=== PATIENT | female | born 1960 | race Caucasian/White ===

== ENCOUNTER 2019-10-04 01:29 | Inpatient (IN) | payer MEDICAID, SELFPAY ==
[2019-10-04] VITALS (66 sets, daily range): BP systolic 73–175; BP diastolic 42–96
[~2019-10-04] VITALS: Ht 160 cm; Wt 85.7 kg
[~2019-10-04 01:29] MED LIST: BACL10TA4 PO; LISI10TA11 PO; [UNRECOGNIZED DRUG - CODE] PO
[2019-10-04] MEDS ORDERED: INTUBATION KIT MC ONE (01:44)
[2019-10-04] MEDS ORDERED: PROPOFOL 1000 MG/100 ML PREMIX 100 ML IV ONE ×2 (01:45→09:11)
[2019-10-04] MEDS ORDERED: fentaNYL 0.05 MG/ML VIAL IVP ONE ×3 (01:45→03:45)
[2019-10-04] MEDS ORDERED: LORazepam 2 MG/ML VIAL IVP ONE (01:45)
[2019-10-04] MEDS ORDERED: ETOMIDATE 20 MG/10 ML VIAL IVP ONE (01:45)
[2019-10-04] MEDS ORDERED: SUCCINYLCHOLINE CHLORIDE 200 MG/10 ML VIAL IVP ONE (01:45)
--- NOTE | 2019-10-04 02:00 | NUR ---
ARRIVAL TO BED 01 VIA W/C. COVID PRECAUTIONS IN PLACE.
--- NOTE | 2019-10-04 02:05 | NUR ---
58 Y/O F PRESENTS TO ED C/O INCREASED SOB. O2 SAT AT 87% RA. LUNG SOUNDS CRACKLES ALTHROUGHOUT. RESPIRATIONS; TACHYPNIC, DEEP. CAP REFIIL <3 SECONDS. PT DENIES ANY TRAVEL, BEING IN CONTACT WITH POSITIVE COVID. PMH: DENIES NKA
--- NOTE | 2019-10-04 02:05 | NUR ---
DR. COLEY AT BEDSIDE, DISCUSSED INTUBATION WITH PT. PT TO BE INTUBATED BY DR. COLEY.
[2019-10-04 02:06] LABS: BASOPHILS # (AUTO) 0.1 K/uL (0.00-0.22); BASOPHILS % (AUTO) 0.6 % (0.0-2.0); HEMATOCRIT 42.5 % (36-48); HEMOGLOBIN 13.9 g/dL (12.0-16.0); LYMPHOCYTES # (AUTO) 1.8 K/uL (2.5-16.5); LYMPHOCYTES % (AUTO) 11.2 % (20.5-51.1); MEAN CORPUSCULAR HEMOGLOBIN 27 pg (27-31); MEAN CORPUSCULAR HGB CONC 33 g/dL (33-37); MEAN CORPUSCULAR VOLUME 82.5 fL (80-94); MONOCYTES # (AUTO) 0.7 K/uL (0.8-1.0); MONOCYTES % (AUTO) 4.2 % (1.7-9.3); NEUTROPHILS # (AUTO) 13.6 K/uL (1.8-7.7); PLATELET COUNT (AUTO) 305 K/uL (140-450); RED BLOOD CELL COUNT(AUTO) 5.15 MIL/uL (4.20-5.40); RED CELL DISTRIBUTION WIDTH 13.2 % (11.6-13.7); WHITE BLOOD COUNT (AUTO) 16.2 K/uL (4.8-10.8)
--- NOTE | 2019-10-04 02:11 | NUR ---
PT INTUBATED BY DR. COLEY WITH A 7.5 ET TUBE, 21.5 CM AT THE LIP.
[2019-10-04 02:22] LABS: ALBUMIN 2.8 g/dL (3.4-5.0); ANION GAP 18.9 (8-16); CARBON DIOXIDE 22.3 mmol/L (21-32); POTASSIUM 3.2 mmol/L (3.5-5.1); TOTAL BILIRUBIN 0.6 mg/dL (0.0-1.0)
[2019-10-04 02:24] LABS: LACTATE DEHYDROGENASE 685 U/L (81-234)
[2019-10-04 02:28] LABS: PROTHROMBIN TIME 10.2 secs (10.8-13.4)
--- NOTE | 2019-10-04 02:40 | NUR ---
# FR Jennings catheter with 10 ml utilizing sterile technique. Immediate return of 2 ml OF urine noted. Bedside drainage bag placed below level of bladder. Urine sample collected and sent to lab. Pt tolerated procedure.
[2019-10-04 02:44] LABS: C-REACTIVE PROTEIN QUANT 27.6 mg/dL (0.0-0.9)
--- NOTE | 2019-10-04 02:55 | NUR ---
CONTACT INFO: PAYAM (SON) [phone] JEFRY (): [phone]
[2019-10-04 03:20] LABS: RSV NEGATIVE (NEGATIVE)
[2019-10-04] MEDS ORDERED: AZITHROMYCIN 500 MG in DEXTROSE 5% 250 ML IV ONE (03:20)
[2019-10-04] MEDS ORDERED: ASPIRIN 600 MG SUPP RC ONE (03:20)
--- NOTE | 2019-10-04 03:20 | NUR ---
PERSISTENT HYPOTENSION NOTED, DR. COLEY AWARE. ORDERED FOR LEVOPHED GTT TO BE ADMINISTERED AT THIS TIME.
[2019-10-04] MEDS ORDERED: DEXT 5% /NACL 0.9% 1,000 ML IV SCH (03:22)
[2019-10-04] MEDS ORDERED: ONDANSETRON 4 MG/2 ML VIAL IM/IVP PRN (03:25)
[2019-10-04] MEDS ORDERED: ACETAMINOPHEN 325 MG TAB PO PRN (03:25)
[2019-10-04] MEDS ORDERED: DOCUSATE SODIUM 100 MG GELCAP PO PRN (03:25)
[2019-10-04] MEDS ORDERED: MORPHINE SULFATE 2 MG/ML SYR IVP PRN (03:25)
[2019-10-04] MEDS ORDERED: HYDROcodone/APAP 5/325 MG 1 TAB TAB PO PRN (03:25)
--- NOTE | 2019-10-04 03:25 | NUR ---
SEE IV FLOWSHEET FOR VITAL SIGNS FOR LEVOPHED TITRATION.
[2019-10-04] MEDS ORDERED: ALBUTEROL HFA MDI 90 MCG/ACTUATION 8 GM INH PRN (03:30)
[2019-10-04] MEDS ORDERED: NOREPINEPHRINE 4 MG in DEXTROSE 5% 250 ML IV ONE (03:35)
[2019-10-04] MEDS ORDERED: NOREPINEPHRINE 4 MG/4 ML VIAL IV ONE (03:37)
[2019-10-04] MEDS ORDERED: DEXTROSE 50% 50 ML SYR IVP PRN (03:40)
[2019-10-04] MEDS ORDERED: MIDAZOLAM MDV 50 MG in NACL 0.9% 40 ML IV PRN (03:40)
[2019-10-04] MEDS ORDERED: AZITHROMYCIN 500 MG INJ VIAL IV ONE (03:44)
[2019-10-04] MEDS ORDERED: KCL 20 MEQ/WATER INJ PREMIX 200 ML IV ONE (03:45)
[2019-10-04 03:57] LABS: MAGNESIUM 1.8 mg/dL (1.8-2.4)
[2019-10-04] MEDS ORDERED: cefTRIAXone 1,000 MG VIAL ONE (04:06)
--- NOTE | 2019-10-04 04:11 | NUR ---
TRANSPORT MONITOR APPLIED TO PT. PT TO BE TRANSPORTED TO ICU AT THIS TIME.
[2019-10-04 04:24] LABS: THYROID STIMULATING HORMONE 0.58 uIU/mL (0.34-3.74)
--- NOTE | 2019-10-04 04:35 | NUR ---
ADMITTED THIS 58 YEAR OLD FEMALE PATIENT FROM ER PER [facility], WITH THE ADMITTING DIAGNOSIS OF PNEUMONIA, RESP. FAILURE AND R/O COVID 19; ORALLY INTUBATED AND VENTILATED AT 100 % FIO2. CARDIACSCOPE SHOWS ON SINUS TACHY HR 108/MIN NO ARRHYTHMIAS SEEN. COMMENCING ON IV LEVOPHED AT 6 MCG/MIN, PROPOFOL DRIP AT 25 MCG/KG/MIN VIA PERIPHERAL LINE OF RIGHT HAND RASS - 2 , DRY WEIGHT IS 78 KG; INTACT. ABDOMEN SOFT, NON TENDER, HYPOACTIVE BOWEL SOUND; OGT IN SITU, NPO EXCEPT MEDS.WITH JASSO CATH IN PLACE TO GRAVITY DRAINAGE BAG, PATENT AND INTAQCT.
[2019-10-04] MEDS ORDERED: HEPARIN PER PHARMACY MC PRN (04:45)
--- NOTE | 2019-10-04 05:00 | NUR ---
Patient will be admitted to care of DR. RANGEL. Admited to ICU. Will go to room 7. Belongings list completed. Report to ICU RETAIL SOLAR ADVISOR.
--- NOTE | 2019-10-04 05:30 | NUR ---
CONSENT FOR CENTRAL LINE INSERTION TAKEN BY TELEPHONE FROM PATIENT'S AND SON. CENTRAL LINE INSERTED BY DR. STINSON ON RIGHT INTERNAL JUGULAR; PORTABLE CHEST X-RAY DONE BY TECH TO CONFIRM PLACEMENT.
[2019-10-04] MEDS: PIPERACILLIN/TAZOBACTAM 3.375 GM in DEXTROSE 5% 50 ML IV SCH ×3 (06:00→17:46)
--- NOTE | 2019-10-04 06:30 | NUR ---
LEVOPHED DRIP TITRATED UP ORDERED.
--- NOTE | 2019-10-04 06:49 | NUR ---
CALLED TO ER FOR INTUBATION. PATIENT WAS INTUBATED SUCCESSFULLY BY DR. COLEY WITH ETT 7.5 AND SECURED AT 25 WITH ANCHOR-FAST. AUSCULTATION REVEALS DECREASED BREATH SOUNDS ON THE LEFT SIDE. XRAY AT BEDSIDE SHOWS RIGHT MAINSTEM INTUBATION. PER DR. COLEY AT BEDSIDE ETT WAS PULLED BACK TO 21.5 AND SECURED WITH ANCHOR-FAST. BILATERAL BREATH SOUNDS ON AUSCULTATION. PATIENT WAS PLACED ON VENT SETTINGS: AC/VC 20, 350, +15, 100%. VENT PLUGGED IN RED OUTLET, ALARMS SET AND AUDIBLE, HOB > 30 DEGREES, AND BVM AT BEDSIDE. WILL CONTINUE TO MONITOR PATIENT.
[2019-10-04] MEDS: BLOOD GLUCOSE MONITORING 1 DEV DEV FS SCH ×4 (07:30→20:57)
--- NOTE | 2019-10-04 07:30 | NUR ---
RECEIVED PT FROM CHARGE NURSE YOLY. PT SEDATED ON PROPOFOL 25 MCG/KG/MIN ( 12 MLS/HR) BASED ON DRY WEIGHT 78 KG. RASS -2. ETT TO VENT. BEDSIDE MONITOR SHOWS SR 97S. PT ALSO HAS LEVOPHED DRIP AT 10 MCG/MIN. PT HAS IV TO LEFT HAND RIGHT HAND AND RIGHT FOOT # 22. PER CHARGE NURSE, CENTRAL LINE INSERTION DONE, WAIT FOR X-RAY TO SEE OK TO USE. ABD SOFT, NON TENDER. F/C IN PLACE WITH YELLOW URINE NOTED. WILL CONTINUE TO MONITOR.
--- NOTE | 2019-10-04 08:10 | NUR ---
PT SELF EXTUBATED, GAVE PT OXYGEN AND ASKED CHARGE NURSE TO CALL RT AND RESIDENT IMMEDIATELY.
--- NOTE | 2019-10-04 08:10 | NUR ---
[employer] CHANNEL OPENER CALLED TO BEDSIDE PATIENT PRESENTING WITH SELF EXTUBATION LOC AWAKE PLACED PATIENT ON SUPPLEMENTAL OXYGEN AT 15 LPM VIA NON REBREATHER OROPHARYNGEAL SUCTION FOR LARGE THICK SEMI CLEAR TO BLOOD TINGE SECRETIONS RN, DR. PARAMJIT SHRESTHA NOTIFIED VENTILATOR PLACED ON STANDBY
--- NOTE | 2019-10-04 08:43 | NUR ---
DR. GANT AND DR PARAMJIT SHRESTHA AT BEDSIDE MD USING [facility] PATIENT SUCCESSFULLY INTUBATED WITH AN ENDOTRACHEAL TUBE #7.5 AT 24cm STAT CXR TO BE ORDERED FOR TUBE PLACEMENT
--- NOTE | 2019-10-04 08:44 | NUR ---
PATIENT HAS BEEN SCREENED AND CATEGORIZED HIGH NUTRITION RISK. PATIENT WILL BE SEEN WITHIN 1-2 DAYS OF ADMISSION. 10/04/19-10/05/[address]
--- NOTE | 2019-10-04 08:45 | NUR ---
DR. SHRESTHA GAVE VERBAL ORDER TO PUT PT ON RESTRAIN.
--- NOTE | 2019-10-04 08:55 | NUR ---
NOTIFIED DR. PARAMJIT SHRESTHA OF I/E WHEEZE BREATH SOUNDS POST INTUBATION ME TO ORDER SOLU-MEDROL
[2019-10-04] MEDS ORDERED: ENOXAPARIN 40 MG/0.4 ML SYR SUBQ SCH (09:00)
[2019-10-04] MEDS ORDERED: HYDROCORTISONE NA SUCC 100 MG/2 ML VIAL IV SCH (09:00)
[2019-10-04] MEDS ORDERED: AZITHROMYCIN 500 MG in DEXTROSE 5% 250 ML IV SCH (09:00)
[2019-10-04] MEDS ORDERED: HYDROXYCHLOROQUINE 200 MG TAB PO SCH (09:00)
--- NOTE | 2019-10-04 09:08 | NUR ---
DR. LARRY IN TO CHECK PT. NOTIFIED PT ON PROPOFOL 25 MCG/KG/MIN, PER DR. LARRY, INCREASE TO 30 MCG/KG/MIN. CHARGE NURSE ELAM MADE AWARE.
--- NOTE | 2019-10-04 09:18 | NUR ---
DISCHARGE PLANNING: THIS IS A 58 Y/O FEMALE PATIENT FROM HOME, WHO CAME IN DUE TO WORSENING SOB AND COUGHS X 1 WEEK. PAST MEDICAL HISTORY INCLUDE HTN. INITIAL DIAGNOSIS OF PNEUMONIA R/O COVID AND RESPIRATORY FAILURE. CURRENT LABS INCLUDE WBC 16.2, H/H 13.9/42.5, NA/K 132/3.2, BUN/CREA 8/1.0, LACTIC ACID 7.4. COVID TEST PENDING. MRSA NARES AND BLOOD CULTURES PENDING. CXR SHOWED OPACIFICATION OF THE LEFT HEMITHORAX. ON PLAQUENIL, SOLU CORTEF, AZITHROMYCIN, ZOSYN. ORALLY INTUBATED TO VENT, FIO2 100%, O2 SAT 98%. CARDIO, ID AND PULMO CONSULTS IN PLACE. DC PLAN PENDING ON PATIENT'S RESPONSE TO TREATMENT. Addendum: 10/06/19 at 0930 by Annamaria Vila STILL IN ICU, ORALLY INTUBATED TO VENT, FIO2 70%, O2 SAT 95%. SEDATED WITH VERSED AND FENTANYL. ON HEPARIN, VECURONIUM AND LEVOPHED DRIPS. CURRENT LABS INCLUDE WBC 21.2, H/H 11.5/35.8, NA/K 134/5.2, BUN/CREA 17/1.1 AND TROP 1.452. (+) FOR COVID 19. ON PLAQEUNIL, AZITHROMYCIN, ROCEPHIN AND PROTONIX IV. SPUTUM CS SHOWED FEW GRAM POSITIVE COCCI. BLOOD CS NO GROWTH AFTER 48 HOURS. SEEN BY CARDIO, PULMO AND ID CONSULTS. DC PLAN PENDING ON PATIENT'S RESPONSE TO TREATMENT. Addendum: 10/08/19 at 1036 by Annamaria Vila STILL IN ICU. ORALLY INTUBATED TO VENT, FIO2 50%, O2 SAT 96%. SEDATED WITH VERSED AND FENTANYL. ON LEVOPHED AND HEPARIN DRIPS. ON LASIX, AZITHROMYCIN AND PROTONIX. SPUTUM CS SHOWED FEW GRAM POSITIVE COCCI. BLOOD CS NO GROWTH AFTER 48 HOURS. URINE CS NO GROWTH. SEEN BY ID, PULMO AND CARDIO CONSULTS. DC PLAN PENDING ON PATIENT'S RESPONSE TO TREATMENT. Addendum: 10/09/19 at 1554 by Annamaria Vila STILL IN ICU. ORALLY INTUBATED FIO2 40%-SAT 96%. CURRENT LABS INCLUDE WBC 12.1, H/H 10.6/31.5, NA/K 137/3.5, BUN/CREA 37/1.0. NOT ON PRESSORS ANYMORE. SEDATED WITH MORPHINE AND VERSED DRIPS. SEEN BY PULMO, ID, CARDIO CONSULTS. DC PLAN PENDING ON PATIENT'S RESPONSE TO TREATMENT. Addendum: 10/10/19 at 1146 by Annamaria Vila STILL IN ICU, ORALLY INTUBATED ON MECHANICAL VENTILATION. SEDATED WITH MORPHINE AND VERSED. NOT ON PRESSORS. SEEN BY PULMO - CONTINUE WITH MECHANICAL VENTILATION AND START WEANING. SEEN BY ID - CONTINUE CURRENT MANAGEMENT FOR NOW. DC PLAN PENDING ON PATIENT'S RESPONSE TO TREATMENT. Addendum: 10/11/19 at 1200 by Annamaria Vila PATIENT DID NOT TOLERATE CPAP TRIAL DUE TO TACHYPNEA AND DESATURATION AND WAS PLACED BACK TO AC MODE. ID, CARDIO AND PULMO CONSULTS IN PLACE. DC PLAN PENDING ON PATIENT'S RESPONSE TO TREATMENT. Addendum: 10/17/19 at 1027 by Annamaria Vila PATIENT TOLERATED CPAP TRIAL FOR AN HOUR YESTERDAY. ETT TO VENT, FIO2 40%, O2 SAT 96%. SEDATED WITH MORPHINE AND VERSED. CURRENT CXR SHOWED INCREASED PATCHY AIRSPACE INFILTRATE AND SUSPECTED TRACE LEFT PLEURAL EFFUSION. CURRENT LABS INCLUDE WBC 16.3, H/H 10.6/32.4, NA/K 137/4.5, BUN/CREA 34/0.6 AND MAG 1.7. CARDIO, PULMO AND ID CONSULTS IN PLACE. DC PLAN PENDING ON PATIENT'S RESPONSE TO TREATMENT.
--- NOTE | 2019-10-04 09:48 | NUR ---
NO CURRENT IMPRESSION ON CXR TAKEN AT 0846 WILL HAVE ERMD READ
--- NOTE | 2019-10-04 09:48 | NUR ---
CXR TAKEN AT [address] RYDER MCCALLUM ERMD IMPRESSION RIGHT MAIN STEM INTUBATION PULL ENDOTRACHEAL TUBE 3cm
[2019-10-04] MEDS ORDERED: PROPOFOL 1000 MG/100 ML PREMIX 100 ML IV PRN (10:10)
[2019-10-04] MEDS ORDERED: methylPREDNISolone SS 40 MG/ML VIAL IVP SCH (10:15)
--- NOTE | 2019-10-04 10:42 | NUR ---
PT RESTING IN BED. O2 SATS 98 %. SBP MORE THAN 90S. NO DISCOMFORT NOTED AT THIS TIME.
[2019-10-04] MEDS: hePARIN / DEXT 5% PREMIX 250 ML IV SCH (10:49)
--- NOTE | 2019-10-04 11:07 | NUR ---
Construction Accountant Note: Basic Screen: Yes High Risk DC Screen [place]: JEFRY HOLLEY [place] Relationship: Pre-Admission Living Arrangements: Lives with Other Prior ADL Independent Current Home Health Name/Tel: N/A Current DME/02 Name/Tel: N/A Current Hospice Name/Tel: N/A Current Dialysis Name/Tel: N/A Healthcare Decision Maker: Patient Advance Directive No Physician Orders for Life Sustaining Treatment Form No Patient/Family Have Educational Needs No Discipline: Case Mgt/Social Svcs Tentative Discharge Plan/Destination: No Needs Identified Will require assistance post discharge: No Referred to Cylinder Filler: No Tentative Discharge Plan Summary: Patient is a 58-year-old female admitted for pneumonia and COVID rule out. Patient has PMHX of pneumonia and rule out COVID. Patient has PMHX of HTN and was admitted from home where he lives with her and children. SW contacted Jefry Holley [phone] to verify demographics. Jefry is Nauruan speaking and allowed daughter Lidia Holley on his behalf. Per Lidia, patient is independent with all ADLs and has no mental health or substance abuse history. Lidia reported that all patients needs are being met. Tentative discharge plan is for patient to return home. No further needs identified. Signature: JOSE Hernandez Date: Oct 04, 2019 Time: 11:06
[2019-10-04] MEDS: fentaNYL 1 MG in NACL 0.9% 80 ML IV PRN ×2 (12:34→15:48)
[2019-10-04] MEDS: NOREPINEPHRINE 16 MG in DEXTROSE 5% 250 ML IV PRN (12:38)
[2019-10-04] MEDS ORDERED: ASCORBIC ACID 500 MG/5 ML ORASYR ONE (12:56)
[2019-10-04] MEDS: ZINC SULF 220 MG CAP NG SCH (12:59)
[2019-10-04] MEDS ORDERED: methylPREDNISolone SS 125 MG/2 ML VIAL ONE (13:03)
[2019-10-04] MEDS: ASCORBIC ACID 500 MG TAB NG SCH (13:08)
--- NOTE | 2019-10-04 13:58 | NUR ---
CALLED RESIDENTS [phone] REVIEWED ABG SAMPLE REPORT WITH DR. SHRESTHA AND DR. GODOY NO NEW ORDERS
--- NOTE | 2019-10-04 14:37 | NUR ---
PT IS AWAKE, REORIENTED PT'S ENVIRONMENT. PT USE HER MOUTH WORD TOLD US SHE HAS NAUSEA, ZOFRAN GIVEN ORDERED.
[2019-10-04] MEDS: MIDAZOLAM MDV 100 MG in NACL 0.9% 80 ML IV PRN (14:59)
--- NOTE | 2019-10-04 16:04 | NUR ---
PT RESTING COMFORTABLY IN BED. NO S/S OF RESPIRATORY DISTRESS NOTED. BEDSIDE MONITOR SHOWS SR 96 AND O2 SATS 96%.
--- NOTE | 2019-10-04 16:10 | NUR ---
RECEIVED PTT 58.9, PER PROTOCOL, NO RATE CHANGE NEEDED. WILL CONTINUE AT 1100 UNITS PER HOUR=11 MLS PER HOUR.
--- NOTE | 2019-10-04 18:20 | NUR ---
DR. STINSON PT O2 SATS DECREASED TO 86-88%, TRIED TO SUCTION PT, UNABLE TO GET ANYTHING. PT O2 SATS WAS FINE BEFORE HE CAME.
[2019-10-04 18:35] LABS: APPEARANCE,URINE CLEAR (CLEAR); BILIRUBIN,URINE NEGATIVE (NEGATIVE); BLOOD, URINE 1+ (NEGATIVE); COLOR,URINE YELLOW (YELLOW); LEUKOCYTE ESTERASE ,URINE NEGATIVE (NEGATIVE); NITRITE, URINE NEGATIVE (NEGATIVE); UGLUCOSE NEGATIVE (NEGATIVE)
[2019-10-04 19:05] LABS: BARBITURATE, URINE NEGATIVE ng/ml (NEG <=200)
[2019-10-04 19:06] LABS: BENZODIAZEPINE, URINE POSITIVE ng/mL (NEG <=200); CANNABINOID, URINE NEGATIVE ng/mL (NEG <=50); COCAINE, URINE NEGATIVE ng/mL (NEG <=300); OPIATE, URINE NEGATIVE ng/mL (NEG <=2000); PHENCYCLIDINE SCREEN,URINE NEGATIVE ng/mL (NEG <=25)
--- NOTE | 2019-10-04 19:15 | NUR ---
ENDORSED PT TO PM SHIFT TANA TSAI.
--- NOTE | 2019-10-04 19:20 | NUR ---
RECEIVED REPORT FROM DAYSHIFT NURSE. ETT TO VENT ACVC 20, FI02 85% TV 350 PEEP 15. SATURATIONS 83%, BREATHING IS UNLABORED, LUNG SOUNDS CLEAR AT UPPER LOBES EXPIRATORY ONLY, DIMINISHED ON INSPIRATION AND AT BASES. S1S2, HEART RATE 101 ON MONITOR. OGT IN PLACE, CLAMPED. AIR CHECK CONFIRMED. RIJ IN PLACE, D5 NS @ 20ML/HR, HEPARIN DRIP 1100 UNITS/HR. LEVOPHED- 20 MCG/MIN, FENTANYL 120 MCG/HR, AND VERSED-6MG/HR, RASS -3, WITHDRAWS TO PAIN, DRY WEIGHT 78 KG. PERRL 3MM. SKIN WARM AND DRY, AFEBRILE. LEFT HAND22 G, FLUSHED AND PATENT, SALINE LOCKED. RIGHT FOOT 22G, NOT PATENT-D/C'd. ABDOMEN SOFT AND NONTENDER, ABSENT BOWEL SOUNDS. JASSO IN PLACE WITH CLEAR YELLOW URINE NOTED. BILATERAL SOFT WRIST RESTRAINTS IN PLACE. SKIN INTACT, CIRCULATION WITHIN NORMAL RANGE. ROPLET PRECAUTIONS IN PLACE FOR RULE OUT COVID. TURNED AND REPOSITIONED PATIENT WITH DAYSHIFT NURSE. HOB 30 DEGREES, BED LOCKED AND IN LOWEST POSITION, SIDERAILS UP x3, WILL CONTINUE TO MONITOR.
[2019-10-04 19:23] LABS: FINE GRANULAR CASTS,URINE 0-10 /LPF (None Seen); HYALINE CASTS, URINE 0-10 /LPF (None Seen)
--- NOTE | 2019-10-04 20:20 | NUR ---
GAVE PATIENTS SON UPDATE ON STATUS.
--- NOTE | 2019-10-04 21:30 | NUR ---
RECEIVED PT ON DOCUMENTED SETTING.ETT WAS AT 7.5 @22. ETT WAS PULLED BACK 1 CM. XRAY WAS SHOT. VENT PLUGGED INTO RED OUTLET. BMV AT BEDSIDE. ETT SECURED AND INTACT. WILL CONT TO MONITOR
--- NOTE | 2019-10-04 23:04 | NUR ---
PER DR STINSON. ETT PULLED BACK TWO CM. ETT NOW 7.5 @ 19 AT THE [facility]. WILL REVIEW NEW XRAYS WHEN ITS DONE
[2019-10-05] VITALS (104 sets, daily range): BP systolic 97–159; BP diastolic 46–79
--- NOTE | 2019-10-05 00:33 | NUR ---
VAP ORAL CARE PROVIDED. REMOVED RESTRAINTS, SKIN INTACT, NO SIGNS OF INJURIES. TURNED AND REPOSITIONED, SKIN INTACT, AFEBRILE. RESTRAINTS BACK IN PLACE. SAFETY MEASURES IN PLACE. WILL CONTINUE TO MONITOR.
--- NOTE | 2019-10-05 00:51 | NUR ---
PTT 69.4, NO CHANGES PER PROTOCOL IN HEPARIN DRIP
--- NOTE | 2019-10-05 00:52 | NUR ---
LAB CALLED WITH PTT OF 54.6. NO CHANGE PER HEPARIN PROTOCOL. Addendum: 10/05/19 at 0054 by Angelique Montemayor RN WRONG PATIENT.
[2019-10-05] MEDS: fentaNYL 1 MG in NACL 0.9% 80 ML IV PRN ×3 (01:28→19:14)
[2019-10-05] MEDS: MIDAZOLAM MDV 100 MG in NACL 0.9% 80 ML IV PRN ×2 (02:31→21:55)
--- NOTE | 2019-10-05 03:38 | NUR ---
PER DR. LARRY, PT WAS DESATTING. TOLD DR. STINSON TO TELL ME TO INCREASE PEEP FROM 15 TO 17
--- NOTE | 2019-10-05 04:05 | NUR ---
PATIENT DESATTING TO 80% ON 100% FI02. CALLED RT TO MAKE AWARE. PROVIDED VAP ORAL CARE AND SUCTIONED PATIENT. SATURATIONS INCREASES TO 85%. TURNED AND REPOSITIONED. SKIN INTACT AT SOFT WRIST RESTRAINTS. WILL CONTINUE TO MONITOR
[2019-10-05] MEDS: NOREPINEPHRINE 16 MG in DEXTROSE 5% 250 ML IV PRN (05:55)
[2019-10-05 06:04] LABS: HEMATOCRIT 39.2 % (36-48); HEMOGLOBIN 12.7 g/dL (12.0-16.0); MEAN CORPUSCULAR HEMOGLOBIN 27 pg (27-31); MEAN CORPUSCULAR HGB CONC 33 g/dL (33-37); MEAN CORPUSCULAR VOLUME 82.5 fL (80-94); PLATELET COUNT (AUTO) 383 K/uL (140-450); RED BLOOD CELL COUNT(AUTO) 4.76 MIL/uL (4.20-5.40); RED CELL DISTRIBUTION WIDTH 13.4 % (11.6-13.7); WHITE BLOOD COUNT (AUTO) 18.5 K/uL (4.8-10.8)
[2019-10-05 06:55] LABS: LYMPHOCYTES % (MANUAL) 7 % (20-46); MONOCYTES % (MANUAL) 3 % (5-12)
[2019-10-05 06:59] LABS: ANION GAP 12.5 (8-16); CARBON DIOXIDE 28.5 mmol/L (21-32); CREATININE 1.3 mg/dL (0.6-1.3)
[2019-10-05 07:04] LABS: MAGNESIUM 1.8 mg/dL (1.8-2.4); PHOSPHORUS 3.4 mg/dL (2.5-4.9)
[2019-10-05 07:08] LABS: CHOL/HDL RATIO 3.1 (1-4.5)
[2019-10-05] MEDS: BLOOD GLUCOSE MONITORING 1 DEV DEV FS SCH ×4 (07:30→20:19)
--- NOTE | 2019-10-05 07:30 | NUR ---
RECEIVED PT FROM PM SHIFT RN. PT SEDATED ON VERSED 6 MG/HR AND FENTANYL AT 120 MCG/HR, RASS -3. ETT TO VENT WITH SETTING EZB1=055%, SF=138, RR 20 AND PEEP 17. LOOKS LIKE PT USING ABD TO BREATH. BEDSIDE MONITOR SHOWS ST-SR 100S. O2 SATS 80%, PER DR. JUAN CARLOS TSAI' GROUP MADE AWARE PT'S O2 SATS LEVEL. O2 SATS RANGE 79%-91% AFTER SUCTION PT AND REPOSITION PT. PT ALSO HAS LEVOPHED DRIP AT 10 MCG/MIN , D5 NS AT 20 CC/HR AND HEPARIN DRIP AT 1100 UNITS/HR . PT HAS IV TO LEFT HAND # 22. ABD SOFT, NON TENDER. F/C IN PLACE WITH LIGHT DANIEL URINE NOTED. PER PM SHIFT NURSE, PT ONLY HAD URINE OUT PUT 350 MLS. SOFT WRIST RESTRAIN NOTED. WILL CONTINUE TO MONITOR.
[2019-10-05] MEDS: hePARIN / DEXT 5% PREMIX 250 ML IV SCH (07:53)
[2019-10-05] MEDS: ASCORBIC ACID 500 MG TAB NG SCH (08:36)
[2019-10-05] MEDS: ZINC SULF 220 MG CAP NG SCH (08:36)
[2019-10-05] MEDS ORDERED: AZITHROMYCIN 250 MG TAB PO SCH (09:00)
[2019-10-05] MEDS ORDERED: HYDROXYCHLOROQUINE 200 MG TAB PO SCH (09:00)
[2019-10-05] MEDS ORDERED: ROCURONIUM 50 MG/5 ML VIAL IV ONE (09:05)
--- NOTE | 2019-10-05 09:10 | NUR ---
DR. LARRY CAME IN TO CHECK PT, DR. LARRY ORDERED ROCURONIUM 50 MG IVP, RT AND DR. LARRY WENT INTO PT'S ROOM WHILE I WAS PUSHING MEDS. AFTER IVP, PT'S O2 SATS INCREASED TO 95S%. Addendum: 10/05/19 at 1309 by Jose Gonzalez RN DR. LARRY STATED NO TRAIN OF FOUR NEEDED , JUST WATCH PT'S O2 SATS AND HOW PT BREATH, DR. GODOY ALSO AT BEDSIDE. Addendum: 10/05/19 at 1356 by Jose Gonzalez RN DR. MILLAN STATED OK TO CLEAN PT BUT DO NOT MOVE PT TOO MUCH.
--- NOTE | 2019-10-05 09:22 | NUR ---
NEW VENT SETTINGS CHANGED BY AC 28, VT 300, PEEP 5 AND FIO2 100%. PT TOLERATING WELL AT THIS TIME. WILL OBTAIN ABG. WILL CONTINUE TO MONITOR.
[2019-10-05] MEDS ORDERED: VECURONIUM 20 MG in NACL 0.9% 100 ML IV SCH (09:25)
[2019-10-05] MEDS: INSULIN LISPRO SLIDING SCALE 100 UNITS/ML VIAL SUBQ PRN ×4 (09:53→20:50)
[2019-10-05] MEDS: AZITHROMYCIN 250 MG in DEXTROSE 5% 250 ML IV SCH (10:01)
[2019-10-05] MEDS ORDERED: HYDROXYCHLOROQUINE 200 MG TAB NG SCH (10:03)
--- NOTE | 2019-10-05 10:35 | NUR ---
ABG RESULTS GIVEN TO AND PHYSICIAN CALLED GIVING ABG RESULTS OVER THE PHONE. PHYSICIAN REQUEST NO NEW CHANGES TO VENT SETTINGS. WILL CONTINUE TO MONITOR.
[2019-10-05] MEDS: VECURONIUM 20 MG in NACL 0.9% 100 ML IV SCH ×2 (11:16→17:25)
--- NOTE | 2019-10-05 11:16 | NUR ---
HOLD RESTRAIN AFTER STARTED VECURONIUM DRIP. PT O2 SATS SHOWS 95%.
--- NOTE | 2019-10-05 13:09 | NUR ---
LATE ENTRY- RD INITIAL ASSESSMENT COMPLETED ON 10/05/19 PLEASE REFER TO NUTRITION ASSESSMENT UNDER CARE ACTIVITY FOR ESTIMATED NUTRITIONAL NEEDS. 1. CONTINUE NPO MEDICALLY APPROPRIATE 2. IF/WHEN PT IS MEDICALLY STABLE CONSIDER ENTERAL NUTRITION WITH VITAL HIGH PROTEIN @ GOAL RATE OF 65 ML/HR X 24 HR. START AT 10 ML/HR AND INCREASE BY 12ML/HR Q12H -THIS WILL PROVIDE 1560 ML OF VOLUME, 1560 KCAL AND 136 GM OF PROTEIN 3. IF PATIENT IS EXTUBATED AND READY FOR PO DIET CONSIDER ORDERING A SWALLOW EVALUATION 4. RD TO FOLLOW-UP 2-3 DAYS, HIGH RISK DUSTIN LOU RD
--- NOTE | 2019-10-05 13:53 | NUR ---
CALLED DR. SHRESTHA REGARDING FEEDING PT DUE TO PT IS ON VECURONIUM DRIP. PER DR. SHRESTHA WE CAN HOLD TUBE FEEDING FOR NOW.
--- NOTE | 2019-10-05 14:41 | NUR ---
PT SEDATED, NO S/S OF RESPIRATORY DISTRESS NOTED. O2 SATS RANGE FROM 92%-98%.
--- NOTE | 2019-10-05 14:42 | NUR ---
DR. SHRESTHA STATED IT IS OK TO FEED PT, WILL WAIT FOR KITCHEN TO DELIVER TUBE FEEDING BAG.
--- NOTE | 2019-10-05 14:58 | NUR ---
PT. ADMITTED WITH LOW KACEY SCALE AT RISK,CONTINUE TO FOLLOW PRESSURE ULCER PREVENTION INTERVENTIONS. -SHIFT WEIGHT, TURN AND REPOSITION PATIENT Q 2H IF NOT CONTRAINDICATED WITH OTHER POC -ASSESS AND MONITOR SKIN CONDITION DURING POSITION CHANGE -OFFLOAD BILATERAL HEELS BY PLACING PILLOWS UNDER CALVES AT ALL TIMES, UNLESS OTHERWISE CONTRAINDICATED -PRESSURE REDISTRIBUTION BY PLACING PILLOWS AND OFFLOADING SACRALCOCCYX -KEEP SKIN CLEAN AND DRY AT ALL TIMES.
--- NOTE | 2019-10-05 16:30 | NUR ---
STARTED PT ON TUBE FEEDING AT 10 CC/HR, PLACEMENT CHECKED .
--- NOTE | 2019-10-05 19:20 | NUR ---
RECEIVED REPORT FROM AM SHIFT. PATIENT SEEN AND ASSESSED. PATIENT IS INTUBATED WITH ETT SIZE 7.5 AND SECURED WITH ANCHOR-FAST AT 21CM. FOUND PATIENT ON VENT SETTINGS: AC/VC 28, 300, +12, 90% WITH SPO2 OF 98%. FiO2 TITRATED TO 80% WITH SPO2 OF 96%. AUSCULTATION REVEALS COARSE BILATERAL BREATH SOUNDS. VENT PLUGGED IN RED OUTLET, ALARMS SET AND AUDIBLE, HOB > 30 DEGREES, AND BVM AT BEDSIDE. WILL CONTINUE TO MONITOR PATIENT.
--- NOTE | 2019-10-05 19:30 | NUR ---
RECEIVED REPORT FROM DAYSPRFT NURSE. PT ETT TO VENT, SETTINGS ACVC-FI02 90%, TV 300, RATE 28, PEEP 12. LUNG SOUNDS WITH CRACKLES ON INSPIRATORY. BREATHING IS EVEN AND UNLABORED. SATURATIONS 98%. S1S2, SR ON MONITOR, HR-74 BPM. BP STABLE-116/66. RIJ IN PLACE, INFUSING LEVOPHED 16MG/250ML-@ 6 MCG/MIN (5.55 ML/HR), ON SEDATION DRIPS-VERSED: 6 MG/HR-6ML/HR, FENTANYL-120 MCG/HR-12 ML/HR. RASS -3. PATIENT WITHDRAWS TO PAIN, DOES NOT OPEN EYES. PERRL 3MM. DRY WEIGHT 78 KG. VECURONIUM INFUSING 15ML/HR. HEPARIN DRIP AT 1100 UNITS/HR-11ML/HR. LEFT HAND PERIPHERAL IV, 22G, FLUSHED AND PATENT, SALINE LOCKED. OGT IN PLACE, CONNECTED TO TUBE FEEDING VITAL AF @ 10ML/HR. AIR CHECKED CONFIRMED, RESIDUALS 5 ML. TOLERATING FEEDING WELL. ABDOMEN IS LARGE, SOFT AND NONTENDER, ACTIVE BOWEL SOUNDS. JASSO IN PLACE, CLEAR YELLOW URINE NOTED. SKIN WARM AND DRY, AFEBRILE, INTACT. BED LOCKED AND IN LOWEST POSITION, SIDERAILS UP x3, HOB 30 DEGREES. DROPLET PRECAUTIONS IN PLACE, WILL CONTINUE TO MONITOR.
[2019-10-05] MEDS: PANTOPRAZOLE 40 MG INJ VIAL IVP SCH (20:19)
[2019-10-05] MEDS ORDERED: PANTOPRAZOLE 40 MG TABEC PO SCH (21:00)
--- NOTE | 2019-10-05 21:33 | NUR ---
SCHEDULED MEDICATIONS GIVEN, PROVIDED VAP CARE. SUCTIONED SMALL AMOUNT OF WHITE CREAMY SECRETIONS. PT WITHDRAWS TO LIGHT SUCTION. REPOSITIONED PATIENT. OFFLOADED PRESSURE AREAS. ALL NEEDS MET AT THIS TIME.
--- NOTE | 2019-10-05 23:40 | NUR ---
LABS DRAWN. PROVIDED VAP ORAL CARE. WITHDRAWS TO LIGHT PAIN. TURNED AND REPOSITIONED PATIENT TO OFFLOAD PRESSURE AREAS. BED LOCKED AND IN LOWEST POSITION. FLACC 0. TEMPERATURE 96.9, ADDED MORE BLANKETS TO PATIENT, SKIN WARM AND DRY.
[2019-10-06] VITALS (94 sets, daily range): BP systolic 84–151; BP diastolic 40–83
[2019-10-06] MEDS: VECURONIUM 20 MG in NACL 0.9% 100 ML IV SCH ×4 (00:45→22:45)
--- NOTE | 2019-10-06 02:10 | NUR ---
LAB CALLED WITH CRITICAL LAB VALUE. PATIENT POSITIVE FOR COVID 19. RESIDENT MD DR TERRY MADE AWARE. CONTINUE WITH DROPLET PRECAUTIONS.
--- NOTE | 2019-10-06 03:51 | NUR ---
PT SEEN WITH EYES CLOSED, SAFETY MEASURES IN PLACE, VISIBLE CHEST RISE AND FALL. ACVC-FI02 70%, TV 300, RATE 28, PEEP-12.
[2019-10-06 05:00] LABS: HEMATOCRIT 35.8 % (36-48); HEMOGLOBIN 11.5 g/dL (12.0-16.0); MEAN CORPUSCULAR HEMOGLOBIN 26 pg (27-31); MEAN CORPUSCULAR HGB CONC 32 g/dL (33-37); PLATELET COUNT (AUTO) 413 K/uL (140-450); RED BLOOD CELL COUNT(AUTO) 4.37 MIL/uL (4.20-5.40); RED CELL DISTRIBUTION WIDTH 13.6 % (11.6-13.7); WHITE BLOOD COUNT (AUTO) 21.2 K/uL (4.8-10.8)
[2019-10-06] MEDS: fentaNYL 1 MG in NACL 0.9% 80 ML IV PRN ×3 (05:10→22:49)
--- NOTE | 2019-10-06 05:48 | NUR ---
PATIENT STILL REMAINS ON VENTILATOR SUPPORT. NO CHANGE IN VENT SETTINGS AT THIS TIME. PER PROTOCOL, FiO2 HAS BEEN TITRATED TO 70%. AIRWAY IS PATENT. NO RESPIRATORY DISTRESS NOTED AT THIS MOMENT. WILL CONTINUE TO MONITOR PATIENT.
[2019-10-06 06:37] LABS: ANION GAP 7.7 (8-16); CARBON DIOXIDE 31.5 mmol/L (21-32); CREATININE 1.1 mg/dL (0.6-1.3); POTASSIUM 5.2 mmol/L (3.5-5.1)
[2019-10-06 06:47] LABS: LYMPHOCYTES % (MANUAL) 8 % (20-46); MONOCYTES % (MANUAL) 5 % (5-12)
[2019-10-06 07:24] LABS: MAGNESIUM 2.1 mg/dL (1.8-2.4)
[2019-10-06] MEDS: hePARIN / DEXT 5% PREMIX 250 ML IV SCH (07:32)
--- NOTE | 2019-10-06 07:39 | NUR ---
RECEIVED INTUBATED PT WITH A 7.5 ETT SECURED @21 TEETH/GUM ON VENT. SETTINGS AC 28, VT 300, PEEP 12 AND FIO2 70%. PT TOLERATING SETTINGS WELL. PT SEDATED NOT IN ANY DISTRESS AT THIS TIME. AIRWAY IS PATENT AND SECURE. VENT IS PLUGGED INTO A RED OUTLET WITH ALARMS ON AND FUNCTIONING. WILL CONTINUE TO MONITOR.
--- NOTE | 2019-10-06 08:00 | NUR ---
PATIENT WAS ACCEPTED AND ASSESS DONE PATIENT ON MEDICATION FOR SEDATION AND ON MEDICATION DUE EXCESSIVE BREATHING TO HELP CONTROL THE BREATHING , HAS AN RIGHT IJ WITH IVF OF VERSED, FENTANYL HEPARIN LEVOPHED AND VECURONIUM ALL PATENT PATIENT HAS RASS -3 NOTICE GENERALIZED EDEMA 2+ TUBE FEEDING OF VITAL 30ML/HR AND PATENT ORAL CARE GIVEN SUCTION OF THICK SECRETION NOTICE SKIN IS COOL TO TOUCH PULES FAINT BUT PRESENT , STABLE NO TEMP VITAL SIGNS STABLE WILL TRIED TO WEAN THE LEVOPHED OFF SLOWLY STABLE 1000 NO CHANGE WITH THE PATIENT ,SEDATED ,RESTING 1200 CONDITION REMAINED THE SAME RESIDENT ROUND ORDER LASIX AND SO MEDROL IV TO START WILL HELP WITH RESP, STABLE 1400 NO CHANGES STABLE 1600 PM CARE WAS GIVEN REPOSITION ON TO THE LEFT SIDE TOLERATE WELL NO SKIN BREAK DOWN WASNOTICE TUBE FEEDING MAIANTAIN ,WATER FLUSH GIVEN STABLE 1800 WILL CONTINUED WITH PLAN OF CARE MONITOR CLOSELY, STABLE
--- NOTE | 2019-10-06 08:00 | NUR ---
PATIENT WAS ACCEPTED AND ASSESS DONE PATIENT IS ON REGULAR BED TURN Q TWO HR INSTEAD OF THE SUPINE AND PRONE POSITION PATIENT IS ON TUBE FEEDING, HAS BEEN CHANGE TO GLUCERNIA 60ML/HR TOLERATE WELL WATER FLUSH Q 4 HR OF 100ML, STABLE HAS AN RIGHT UPPER ARM PICC, IVF FENTANYL VERSED LEVOPHED NS AT 5ML, KVO RATE WILL TRIED TO WEAN THE LEVOPHED TO OFF, STABLE URINE OUT PUT GOOD , HAS AN CLINICAL VALUE OF THE BUN IS HI PATIENT IS IN SINUS TACHYCARDIA NOTICE NO TA TODAY COLOR FAIR SKIN WARM AND DRY VERY SEDATED RASS OF -3 AND STABLE 1000 NO CHANGES WITH THE PATIENT,REMAINED SEDATED ON THE SEDATION MEDICATION, STABLEWILL CONTINUED TO MONITOR THE PATIENT Q ONE HR, STABLE 1200 NO CHANGES WILL CONTINUED WITH PLAN OF CARE, STABLE 1300 LEVOPHED DRIPIS OFF, VITAL SIGNS STABLE PATIENT HAS AN TEMP. OF 100.6 ON AN COOLING BLANKET WILL ONLY NEED TYENOL FOR TEMP. 1800 PM CARE WAS GIVEN NOTICE ON THE RIGHT BUTTUCK SKIN WAS RED, NO SKIN BREAK DOWN WILL NEED TO TURN THE PATIENT Q TWO HR, STABLE WILL CONTINUED WITH PLAN OF CARE, STABLE
[2019-10-06] MEDS ORDERED: HYDROXYCHLOROQUINE 200 MG TAB NG SCH (09:00)
[2019-10-06] MEDS: PANTOPRAZOLE 40 MG INJ VIAL IVP SCH ×2 (10:00→20:39)
[2019-10-06] MEDS: HYDROXYCHLOROQUINE 200 MG TAB NG SCH (10:00)
[2019-10-06] MEDS: ZINC SULF 220 MG CAP NG SCH (10:00)
[2019-10-06] MEDS: ASCORBIC ACID 500 MG TAB NG SCH (10:00)
[2019-10-06] MEDS ORDERED: methylPREDNISolone SS 40 MG/ML VIAL IVP SCH ×2 (11:00→21:00)
[2019-10-06] MEDS: FUROSEMIDE 20 MG/2 ML VIAL IVP SCH (11:08)
[2019-10-06] MEDS: AZITHROMYCIN 250 MG in DEXTROSE 5% 250 ML IV SCH (11:16)
[2019-10-06] MEDS: BLOOD GLUCOSE MONITORING 1 DEV DEV FS SCH ×4 (11:30→21:05)
--- NOTE | 2019-10-06 13:51 | NUR ---
PT NOT IN ANY DISTRESS AT THIS TIME PT REMAINS SEDATED. WILL CONTINUE TO MONITOR. ETT IS SECURE WITH PATENT AIRWAY.
[2019-10-06] MEDS: MIDAZOLAM MDV 100 MG in NACL 0.9% 80 ML IV PRN (14:04)
--- NOTE | 2019-10-06 17:57 | NUR ---
FIO2 TITRATED TO 60%. PT SUCTIONED OBTAINED SMALL AMOUNT OF THICK SECRETIONS, AIRWAY IS PATENT AND ETT IS SECURE. PT NOT IN ANY DISTRESS AT THIS TIME. VENT ALARMS ON AND FUNCTIONING.
[2019-10-06] MEDS: INSULIN LISPRO SLIDING SCALE 100 UNITS/ML VIAL SUBQ PRN ×2 (18:26→21:06)
--- NOTE | 2019-10-06 19:30 | NUR ---
RECEIVED REPORT FROM [facility] NURSE. PT ETT TO VENT, ACVC- 28, FI02 60%, TV 300, PEEP 12. LUNG SOUNDS ARE CLEAR BILATERALLY, WITH EVEN AND UNLABORED BREATHING. SATURATIONS 96%. S1S2, SR ON MONITOR. BLOOD PRESSURE WNL, OFF LEVOPHED DRIP. RIJ IN PLACE, INFUSING HEPARIN DRIP-1100 U/HR (11ML/HR), FENTANYL-12ML/HR-120 MCG/MIN, AND VERSED-6ML/HR (6MG/HR), VECURONIUM 15ML/HR (0.8 MCG/KG/MIN) DRY WEIGHT USED 62KG PER VECURONIUM ORDER. RASS -3. PATIENT WITHDRAWS TO LIGHT PAIN. PERRL, BRISK, 3MM. SKIN IS WARM AND DRY, INTACT. TEMP-96.2. LEFT HAND/WRIST 22G, FLUSHED AND PATENT, SALINE LOCKED. OGT IN PLACE, CONNECTED TO FEEDING, VITAL AF @ 30ML/HR. ABDOMEN IS SOFT AND NONTENDER, BOWEL SOUNDS ACTIVE. JASSO IN PLACE, CLEAR YELLOW URINE DRAINING. APPLIED SCD's AND ADDED MORE BLANKETS. PATIENT IS EDEMATOUS AT UPPER EXTREMITIES AND AT FACE. CAP REFILL < 3 SECONDS, RADIAL PULSES FELT. HOB 30 DEGREES, SIDERAILS UP x3, BED LOCKED AND IN LOWEST POSITION. WILL CONTINUE TO MONITOR.
--- NOTE | 2019-10-06 20:04 | NUR ---
RECEIVED PATIENT ON DOCUMENTED SETTINGS. VENT PLUGGED INTO RED OUTLET. BMV AT BEDSIDE. ETT SECURED AND INTACT. PT IS IN NO DISTRESS. WILL CONT TO MONITOR.
--- NOTE | 2019-10-06 20:50 | NUR ---
SPOKE WITH PATIENTS SON-ZULMA. UPDATED ON PATIENTS CONDITION AND TREATMENT PLAN. INQUIRED ABOUT PATIENTS FLU SHOT STATUS, ZULMA REPORTS " I DONT BELIEVE MY MOM EVER GOT THE FLU SHOT" WILL DOCUMENT IN CHART.
--- NOTE | 2019-10-06 21:20 | NUR ---
ADMINISTERED SCHEDULED MEDICATIONS. 2 UNITS HUMALOG GIVEN PER SLIDING SCALE, SUGAR 162. CONFIRMED PLACEMENT AT OGT VIA AUSCULTATION. CHECKED RESIDUALS, 205 ML. WILL HOLD FEEDING.
--- NOTE | 2019-10-06 23:50 | NUR ---
LABS DRAWN. TURNED AND POSITIONED PATIENT. PROVIDED VAP CARE. PATIENT WITHDRAWS SLIGHTLY TO SUCTIONING. OGT IN PLACE, CONFIRMED PLACEMENT WITH AIR CHECK/AUSCULTATION. RESIDUALS STILL VERY HIGH. RIGHT AT 200ML. CONTINUE TO HOLD FEEDING. TEMPERATURE 96.8. VENT SETTINGS THE SAME START OF SHIFT. WILL CONTINUE TO MONITOR.
[2019-10-07] VITALS (103 sets, daily range): BP systolic 88–130; BP diastolic 50–73
--- NOTE | 2019-10-07 01:48 | NUR ---
PROVIDED CHG BATH, JASSO CARE, PERINEAL CARE. SKIN IS INTACT, NO SIGNS OF INJURIES TO BONY PROMINENCES. CHANGED GOWN AND ALL LINEN. SCD's IN PLACE, YELLOW SOCKS APPLIED. RIJ CENTRAL LINE DRESSING DRY AND INTACT. PATIENT FLACC. ALL NEEDS MET AT THIS TIME.
--- NOTE | 2019-10-07 04:00 | NUR ---
PROVIDED VAP CARE AND TURNED AND REPOSITIONED PATIENT. CHECKED RESIDUALS AT OGT, RESIDUALS DOWN TO 15 ML. RESTARTED FEEDING AND KEPT AT LAST RATE, 30 ML/HR. WILL MONITOR AND CHECK WITHIN NEXT HOUR. TEMP IS STILL LOW 96.4. SKIN IS DRY AND WARM, STILL EDEMATOUS. OFFLOAD PRESSURE AREAS AND SCD's STILL IN PLACE. HOB 30 DEGREES, FLACC0, EYES PERRL
[2019-10-07 04:32] LABS: BASOPHILS % (AUTO) 0.1 % (0.0-2.0); EOSINOPHILS % (AUTO) 0.1 % (0.0-4.0); HEMATOCRIT 32.2 % (36-48); HEMOGLOBIN 10.5 g/dL (12.0-16.0); LYMPHOCYTES # (AUTO) 0.8 K/uL (2.5-16.5); LYMPHOCYTES % (AUTO) 5.6 % (20.5-51.1); MEAN CORPUSCULAR HEMOGLOBIN 27 pg (27-31); MEAN CORPUSCULAR HGB CONC 33 g/dL (33-37); MEAN CORPUSCULAR VOLUME 81.8 fL (80-94); MONOCYTES # (AUTO) 0.6 K/uL (0.8-1.0); NEUTROPHILS # (AUTO) 13.2 K/uL (1.8-7.7); NEUTROPHILS % (AUTO) 90.2 % (42.2-75.2); PLATELET COUNT (AUTO) 373 K/uL (140-450); RED BLOOD CELL COUNT(AUTO) 3.93 MIL/uL (4.20-5.40); RED CELL DISTRIBUTION WIDTH 13.4 % (11.6-13.7); WHITE BLOOD COUNT (AUTO) 14.7 K/uL (4.8-10.8)
[2019-10-07 04:45] LABS: ANION GAP 9.8 (8-16); CARBON DIOXIDE 32.4 mmol/L (21-32); CREATININE 1.1 mg/dL (0.6-1.3); POTASSIUM 5.2 mmol/L (3.5-5.1)
[2019-10-07 05:18] LABS: MAGNESIUM 2.3 mg/dL (1.8-2.4); PHOSPHORUS 2.7 mg/dL (2.5-4.9)
--- NOTE | 2019-10-07 05:30 | NUR ---
RECEIVED REPORT FROM [facility] NURSE. PATIENT ETT TO VENT, ACVC 30, FI02 60% TV 300, PEEP 12. SATURATIONS 95%. BREATHING IS UNLABORED. S1S2, SINUS TA ON MONITOR, HEART RATE 55BPM. BLOOD PRESSURE STABLE. SKIN IS WARM AND DRY, EDEMATOUS, TEMP 96.2 TEMPORAL. SKIN INTACT. RIJ CENTRAL LINE, INFUSING VERSED- 5MG/HR (5ML/HR), AND FENTANYL- 2 MCG/KG/HR (12.4 ML/HR) DRY WT. 62KG. RASS-3, DOES NOT OPEN EYES, BUT RAISES EYEBROWS TO VOICE AND WITHDRAWS TO LIGHT PAIN. PERRL 3MM. OGT IN PLACE, PLACEMENT CONFIRMED VIA AUSCULTATION. RESIDUALS 50ML. FEEDING ON HOLD. ABDOMEN LARGE AND NONTENDER, BOWEL SOUNDS ABSENT. JASSO IN PLACE, DRAINING CLEAR YELLOW URINE. SCD's, CONNECTED. SAFETY ALARMS IN PLACE, HOB 30 DEGREES, SIDERAILS UP, WILL CONTINUE TO MONITOR. Addendum: 10/08/19 at 0533 by Marylu Becker RN WRONG ENTRY TIME, THIS IS 10/07/19 @1930 , NOT [id number]
--- NOTE | 2019-10-07 05:44 | NUR ---
PT REMAINS ON DOCUMENTED SETTING. BMV AT BEDSIDE. ALARMS AUDIBLE. ETT SECURED AND INTACT.PATENT AIRWAY. NO DISTRESS NOTED
[2019-10-07] MEDS: BLOOD GLUCOSE MONITORING 1 DEV DEV FS SCH ×4 (06:18→21:40)
[2019-10-07] MEDS ORDERED: VECURONIUM 10 MG VIAL IVP ONE (06:26)
[2019-10-07] MEDS: VECURONIUM 20 MG in NACL 0.9% 100 ML IV SCH (06:31)
--- NOTE | 2019-10-07 07:25 | NUR ---
BEDSIDE REPORT RECEIVED FROM PRISM MEASURER NURSE, PT SEDATED TO RASS -3, WITH ETT TO VENT 7.5F, 20 AT TEETH, ACVC FIO2 60%,TV 300, PEEP 12, RR 28, VITALS STABLE, RESP UNLABORED, BILAT CHEST RISE AND FALL, SKIN WARM DRY COLOR WNL, SR-ST ON MONITOR, RIJ CENTRAL LINE, TRIPLE LUMEN, SITE WNL, LEFT HAND 22G PIV DISLODGED, DC'D, CATH TIP INTACT, BLEEDING CONTROLLED, OGT IN PLACE, FEEDING ONGOING AT 30ML/HR, ABD SOFT NON DISTNEDED, JASSO IN PLACE, DRIANING TO GRAVITY, GEN EDEMA NOTED ON ALL EXT, SKIN INTACT, POC REVIEWED, ALL SAFETY MEASURES IN PLACE, CURRENT DRIPS HEPARIN 1100 UNITS/HR (11 ML/HR), VECURONIUM AT 0.8MCG/KG/MIN (15ML/HR), VERSED 5MG/HR (5ML/HR), FENTANYL 2MCG/KG/HR (12.4ML/HR), DRY WT 62KG.
[2019-10-07] MEDS: fentaNYL 1 MG in NACL 0.9% 80 ML IV PRN ×2 (07:42→18:29)
--- NOTE | 2019-10-07 07:42 | NUR ---
RECEIVED INTUBATED PT WITH A 7.5 ETT SECURED @20 TEETH/GUM ON VENT. SETTINGS AC 28, VT 300, PEEP 12 AND FIO2 60%. PT TOLERATING SETTINGS WELL. PT SEDATED NOT IN ANY DISTRESS AT THIS TIME. VENT IS PLUGGED INTO A RED OUTLET WITH ALARMS ON AND FUNCTIONING. PT SUCTIONED OBTAINED SMALL AMOUNT OF CLEAR THICK SECRETIONS, AIRWAY IS PATENT AND SECURE. WILL CONTINUE TO MONITOR.
[2019-10-07] MEDS: hePARIN / DEXT 5% PREMIX 250 ML IV SCH (07:43)
[2019-10-07] MEDS: MIDAZOLAM MDV 100 MG in NACL 0.9% 80 ML IV PRN (07:44)
[2019-10-07] MEDS ORDERED: methylPREDNISolone SS 40 MG/ML VIAL IVP SCH (09:00)
[2019-10-07] MEDS: ASCORBIC ACID 500 MG TAB NG SCH (09:42)
[2019-10-07] MEDS: ZINC SULF 220 MG CAP NG SCH (09:42)
[2019-10-07] MEDS: FUROSEMIDE 20 MG/2 ML VIAL IVP SCH (09:42)
[2019-10-07] MEDS: HYDROXYCHLOROQUINE 200 MG TAB NG SCH (09:42)
[2019-10-07] MEDS: PANTOPRAZOLE 40 MG INJ VIAL IVP SCH ×2 (09:43→21:41)
--- NOTE | 2019-10-07 10:22 | NUR ---
(10/07/19) RD FOLLOW UP COMPLETED PLEASE REFER TO NUTRITION PROGRESS NOTE UNDER CARE ACTIVITY FOR ESTIMATED NUTRITION NEEDS. RD RECOMMENDATIONS: 1. WHEN MEDICALLY APPROPRIATE, RESUME VITAL AF 1.2 AT 30 ML/HR, INCREASING BY 10 ML Q6H TOLERATED. 2. CONSIDER CHANGING ENTERAL FEEDING TO VITAL HIGH PROTEIN, START AT 30 ML/HR AND INCREASE BY 10 ML Q6H TOLERATED, UNTIL GOAL RATE OF 60 ML/HR IS REACHED. AT GOAL RATE OF 60 ML/HR, VITAL HIGH PROTEIN WILL PROVIDE 1440 KCAL, 126 GM PROTEIN, AND 1204 ML FREE WATER, WHICH WILL MEET 93% ESTIMATED KCAL NEEDS AND 82% ESTIMATED PROTEIN NEEDS. 3. RD TO FOLLOW-UP 2-3 DAYS, HIGH RISK. DENIA BARAJAS, MS, RDN
--- NOTE | 2019-10-07 10:30 | NUR ---
OGT FEED RESIDUAL >200, FEEDING HELD, DR GODOY AWARE.
[2019-10-07] MEDS: AZITHROMYCIN 250 MG in DEXTROSE 5% 250 ML IV SCH (11:44)
[2019-10-07] MEDS: INSULIN LISPRO SLIDING SCALE 100 UNITS/ML VIAL SUBQ PRN ×2 (12:00→17:56)
--- NOTE | 2019-10-07 12:15 | NUR ---
DR GODOY AT BEDSIDE, ATTEMPT TO TITRATE DOWN VECURONIUM TOLERATED.
--- NOTE | 2019-10-07 13:10 | NUR ---
PT TOLERATING VENT SETTINGS WELL . PT SEDATED NOT IN ANY DISTRESS AT THIS TIME. WILL CONTINUE TO MONITOR.
--- NOTE | 2019-10-07 15:09 | NUR ---
DR PANCHAL AT BEDSIDE
--- NOTE | 2019-10-07 16:08 | NUR ---
DR MUELLER AT BEDSIDE, TITRATE DOWN ON VECURONIUM.
--- NOTE | 2019-10-07 17:57 | NUR ---
BLOOD SUGAR 151, 2 UNITS INSULIN GIVEN, PT REPOSITIONED, PT REMAINS ON HEPARIN DRIP AT 1100 UNITS, NO S/S OF ABNORMAL BLEEDING OR BRUISING NOTED, VERSED AT 5MG/HR, FENTANYL AT 2MCG/KG/HR, CENTRAL LINE SITE WNL, JASSO DRAINING WELL, VITALS STABLE, PT OFF VECURONIUM. VENT SETTING REMAINS THE SAME
--- NOTE | 2019-10-07 19:30 | NUR ---
RECEIVED REPORT FROM [facility] NURSE. PATIENT ETT TO VENT, ACVC 30, FI02 60% TV 300, PEEP 12. SATURATIONS 95%. BREATHING IS UNLABORED. S1S2, SINUS TA ON MONITOR, HEART RATE 55BPM. BLOOD PRESSURE STABLE. SKIN IS WARM AND DRY, EDEMATOUS, TEMP 96.2 TEMPORAL. SKIN INTACT. RIJ CENTRAL LINE, INFUSING VERSED- 5MG/HR (5ML/HR), AND FENTANYL- 2 MCG/KG/HR (12.4 ML/HR) DRY WT. 62KG. RASS-3, DOES NOT OPEN EYES, BUT RAISES EYEBROWS TO VOICE AND WITHDRAWS TO LIGHT PAIN. PERRL 3MM. OGT IN PLACE, PLACEMENT CONFIRMED VIA AUSCULTATION. RESIDUALS 50ML. FEEDING ON HOLD. ABDOMEN LARGE AND NONTENDER, BOWEL SOUNDS ABSENT. JASSO IN PLACE, DRAINING CLEAR YELLOW URINE. SCD's, CONNECTED. SAFETY ALARMS IN PLACE, HOB 30 DEGREES, SIDERAILS UP, WILL CONTINUE TO MONITOR.
--- NOTE | 2019-10-07 19:45 | NUR ---
RECEIVED REPORT FROM AM SHIFT. PATIENT SEEN AND ASSESSED. PATIENT IS INTUBATED WITH ETT SIZE 7.5 AND SECURED WITH ANCHOR-FAST AT 21CM @LIP. FOUND PATIENT ON VENT SETTINGS: AC/VC 28, 300, +12, 60% WITH SPO2 OF 98%. FiO2 TITRATED TO 55% WITH SPO2 OF 95%. AUSCULTATION REVEALS COARSE BILATERAL BREATH SOUNDS. VENT PLUGGED IN RED OUTLET, ALARMS SET AND AUDIBLE, HOB > 30 DEGREES, AND BVM AT BEDSIDE. PATIENT APPEARS TO BE IN NO APPARENT RESPIRATORY DISTRESS AT THIS TIME. PRN MDI TX NOT INDICATED AT THIS MOMENT. WILL CONTINUE TO MONITOR PATIENT.
--- NOTE | 2019-10-07 21:05 | NUR ---
TURNED AND REPOSITIONED PATIENT. PILLOWS USED TO OFFLOAD PRESSURE SITES. ASSESSED SKIN AT SCD's, INTACT,PERFORMED ROM EXERCISES FOR BLOOD FLOW. CAP REFILL LESS THAN 3 SECONDS. BED LOCKED AND IN LOWEST POSITION. HOB 30 DEGREES. PROVIDED ORAL CARE. CLEANED PATIENTS EYES, DRIED SECRETIONS NOTED. BLOOD SUGAR WNL, NO COVERAGE NEEDED. FLACC 0.
--- NOTE | 2019-10-07 21:35 | NUR ---
UPDATED PATIENTS SON-ZULMA ON PATIENT STATUS AND TREATMENT PLAN.
[2019-10-08] VITALS (104 sets, daily range): BP systolic 53–132; BP diastolic 34–98
--- NOTE | 2019-10-08 00:03 | NUR ---
VAP ORAL CARE PROVIDED, SUCTIONED SMALL AMOUNT OF CREAMY WHITE SECRETIONS ORALLY. PATIENT BITES DOWN WITH ORAL CLEANING AND GRIMACES. ABLE TO RESPOND TO VOICE, DOES NOT OPEN EYES BUT MAKES FACIAL EXPRESSIONS. CANNOT FOLLOW COMMANDS. TEMPERATURE INCREASING 97.0. SAFETY ALARMS IN PLACE.
[2019-10-08] MEDS: fentaNYL 1 MG in NACL 0.9% 80 ML IV PRN ×3 (00:35→16:58)
--- NOTE | 2019-10-08 02:48 | NUR ---
PATIENT HAS BEEN TRENDING SINUS TA ON MONITOR- BETWEEN 50-60 BPM. PATIENT HAS WENT LOW 47 BPM, CALLED RESIDENT MD DR HURTADO TO MAKE AWARE, NO NEW ORDERS AT THIS TIME, CONTINUE TO MONITOR.
--- NOTE | 2019-10-08 05:41 | NUR ---
PROVIDED PATIENT WITH SPONGE BATH, JASSO CARE AND ORAL CARE. PATIENT IS RASS -3, MORE ALERT, RESPONDS TO VOICE, GRIMACES AND TRIES TO MOVE SHOULDERS AND ARMS, GENERALIZED WEAKNESS. SKIN INTACT. JASSO STILL IN PLACE DRAINING YELLOW URINE. VENT SETTINGS: ACVC 30 FI02 50% TV 300 PEEP 12. SB ON MONITOR, ALL OTHER VITALS WNL.
--- NOTE | 2019-10-08 06:32 | NUR ---
PATIENT STILL REMAINS ON VENTILATOR SUPPORT. NO CHANGE IN VENT SETTINGS AT THIS TIME. PER PROTOCOL, FiO2 HAS BEEN TITRATED TO 50%. AIRWAY IS PATENT. NO RESPIRATORY DISTRESS NOTED AT THIS MOMENT. WILL CONTINUE TO MONITOR PATIENT.
[2019-10-08 06:49] LABS: HEMOGLOBIN 10.6 g/dL (12.0-16.0); MEAN CORPUSCULAR HEMOGLOBIN 27 pg (27-31); MEAN CORPUSCULAR HGB CONC 33 g/dL (33-37); MEAN CORPUSCULAR VOLUME 81.7 fL (80-94); PLATELET COUNT (AUTO) 423 K/uL (140-450); RED BLOOD CELL COUNT(AUTO) 3.92 MIL/uL (4.20-5.40); RED CELL DISTRIBUTION WIDTH 13.3 % (11.6-13.7); WHITE BLOOD COUNT (AUTO) 13.3 K/uL (4.8-10.8)
[2019-10-08 06:50] LABS: ANION GAP 11.1 (8-16); CARBON DIOXIDE 31.2 mmol/L (21-32); POTASSIUM 4.3 mmol/L (3.5-5.1)
[2019-10-08] MEDS: BLOOD GLUCOSE MONITORING 1 DEV DEV FS SCH ×4 (07:30→21:10)
--- NOTE | 2019-10-08 07:30 | NUR ---
RECEIVED BEDSIDE REPORT FROM VEHICLE DYNAMICS ENGINEER RN. PT IS SEDATED, RASS -3. TEMP 97.6. FLACC 0. SINUS BRADYCARDIA ON MONITOR. ETT TO VENT WITH SETTINGS A/C VC FIO2 50%, VT 300, RR 30, PEEP 12. LUNGS SOUND COARSE. BREATHING EVEN AND UNLABORED. OGT IN PLACE. PLACEMENT CONFIRMED. ABDOMEN SOFT, NONTENDER W/ HYPOACTIVE BOWEL SOUNDS. CENTRAL LINE TO RIJ ASYMPTOMATIC, PATENT AND INTACT. PT IS ON VERSED DRIP AT 5 MG/HR, FENTANYL DRIP AT 2 MCG/KG/HR, HEPARIN DRIP AT 1100 UNITS/HR. DRY WEIGHT [address]G. J[address]O CATH IN PL[address] DRAINING CLEAR YELLOW URINE TO GRAVITY. SKIN INTACT, DRY AND WARM TO TOUCH. HOB AT 30 DEGREES. BED IN LOWEST POSITION LOCKED. CALL LIGHT WITHIN REACH. NO SIGNS OF DISTRESS NOTED AT THIS TIME. WILL CONTINUE TO MONITOR.
--- NOTE | 2019-10-08 07:42 | NUR ---
RECEIVED INTUBATED PT WITH A 7.5 ETT SECURED @20 TEETH/GUM ON VENT. SETTINGS AC 28, VT 300, PEEP 12 AND FIO2 50%. PT TOLERATING SETTINGS WELL. PT SEDATED NOT IN ANY DISTRESS AT THIS TIME. VENT IS PLUGGED INTO A RED OUTLET WITH ALARMS ON AND FUNCTIONING. PT SUCTIONED OBTAINED SMALL AMOUNT OF CLEAR THICK SECRETIONS, AIRWAY IS PATENT AND SECURE. WILL CONTINUE TO MONITOR.
--- NOTE | 2019-10-08 08:00 | NUR ---
PT SEEN BY DR. RANGEL AND RESIDENT GROUP. WILL FOLLOW UP ON ORDERS.
[2019-10-08] MEDS: MIDAZOLAM MDV 100 MG in NACL 0.9% 80 ML IV PRN (08:06)
[2019-10-08] MEDS: hePARIN / DEXT 5% PREMIX 250 ML IV SCH (08:22)
[2019-10-08 08:38] LABS: BASOPHILS % (MANUAL) 0 % (0-2); EOSINOPHILS % (MANUAL) 0 % (0-4); LYMPHOCYTES % (MANUAL) 12 % (20-46); MONOCYTES % (MANUAL) 10 % (5-12)
[2019-10-08] MEDS: FUROSEMIDE 20 MG/2 ML VIAL IVP SCH (08:54)
[2019-10-08] MEDS: ASCORBIC ACID 500 MG TAB NG SCH (08:54)
[2019-10-08] MEDS: PANTOPRAZOLE 40 MG INJ VIAL IVP SCH ×2 (08:54→21:11)
[2019-10-08 08:55] LABS: MAGNESIUM 2.3 mg/dL (1.8-2.4); PHOSPHORUS 3.5 mg/dL (2.5-4.9)
[2019-10-08] MEDS: HYDROXYCHLOROQUINE 200 MG TAB NG SCH (08:55)
[2019-10-08] MEDS: ZINC SULF 220 MG CAP NG SCH (08:55)
--- NOTE | 2019-10-08 09:07 | NUR ---
PT. SCREEN FOR LOW KACEY SCALE AT RISK, CONTINUE TO FOLLOW PRESSURE ULCER PREVENTION INTERVENTIONS. -TURN AND REPOSITION PATIENT Q 2H -ASSESS AND MONITOR SKIN CONDITION DURING POSITION CHANGE -OFFLOAD BILATERAL HEELS BY PLACING PILLOWS UNDER CALVES AT ALL TIMES, UNLESS OTHERWISE CONTRAINDICATED -PRESSURE REDISTRIBUTION BY PLACING PILLOWS AND OFFLOADING SACRALCOCCYX -KEEP SKIN CLEAN AND DRY AT ALL TIMES.
--- NOTE | 2019-10-08 09:15 | NUR ---
MEDICATIONS ADMINISTERED ORDERED. PT TOLERATED WELL.
[2019-10-08] MEDS: AZITHROMYCIN 250 MG in DEXTROSE 5% 250 ML IV SCH (09:51)
--- NOTE | 2019-10-08 10:20 | NUR ---
PT SEEN BY DR. MUELLER, AWARE OF PT'S BRADYCARDIA, HR 49-50 AT THIS TIME. WILL FOLLOW UP WITH ANY NEW ORDERS.
[2019-10-08] MEDS ORDERED: BETHANECHOL 25 MG TAB NG SCH (11:30)
--- NOTE | 2019-10-08 12:05 | NUR ---
VAP ORAL CARE GIVEN. TURNED AND REPOSITIONED. PT STILL HAS SINUS BRADYCARDIA, FLACC 0, TEMP 96.9, RASS -3. WILL CONTINUE TO MONITOR.
--- NOTE | 2019-10-08 13:31 | NUR ---
VENT CHECK COMPLETED. PT NOT IN ANY DISTRESS AT THIS TIME. WILL CONTINUE TO MONITOR.
--- NOTE | 2019-10-08 13:40 | NUR ---
DR. MARIN IN TO SEE PT. UPDATES GIVEN ON PT'S CONDITION.
--- NOTE | 2019-10-08 14:02 | NUR ---
RECEIVED CALL FROM PT'S SON, ZULMA. UPDATES GIVEN ON PT'S CONDITION.
--- NOTE | 2019-10-08 16:02 | NUR ---
VAP ORAL CARE, JASSO CARE, PM CARE DONE. TOLERATED WELL.
--- NOTE | 2019-10-08 16:05 | NUR ---
PT SUCTIONED OBTAINED SMALL AMOUNT OF THICK SECRETIONS, AIRWAY IS PATENT AND ETT IS SECURE. PT NOT IN ANY DISTRESS. WILL CONTINUE TO MONITOR.
--- NOTE | 2019-10-08 17:47 | NUR ---
VENT CHECK COMPLETED PT REMAINS ON DOCUMENTED VENT SETTINGS. PT NOT IN ANY DISTRESS AT THIS TIME. VENT ALARMS ON AND FUNCTIONING. ETT IS SECURE WITH A PATENT AIRWAY.
--- NOTE | 2019-10-08 18:30 | NUR ---
DR. STINSON IN THE UNIT. WILL FOLLOW UP ON ORDERS.
--- NOTE | 2019-10-08 19:27 | NUR ---
REPORT GIVEN TO SENIOR FIRE PROTECTION ENGINEER RN FOR CONTINUITY OF CARE. PT IS IN STABLE CONDITION.
--- NOTE | 2019-10-08 19:30 | NUR ---
RECEIVED CHANGE OF SHIFT REPORT FROM DAY SHIFT NURSE. PT IS AROUSABLE TO LIGHT TOUCH. EYES PERRL 3MM. UNABLE TO FOLLOW SIMPLE COMMANDS. PT IS INTUBATED 7.5 CM TAPED AT 20. ETT TO VENT W/ SETTINGS AT FIO2 50%, A/CVC, VT 300, RR 28, PEEP 12. LUNG SOUNDS COARSE THROUGHOUT ALL LOBES. EQUAL RISE AND FALL OF CHEST. S1S2 HEARD. PT IS SINUS TA ON MONITOR. CAP REFILL <3 SECONDS, PT HAS RIJ TRIPLE LUMEN THAT IS ASYMPTOMATIC, PATENT AND INTACT. VERSED RUNNING AT 6MG/HR FENTANYL RUNNING AT 2MCG/KG/HR FOR RASS -3. DRY WEIGHT 62KG. PT IS HAS JASSO CATHETER W/ NO OUTPUT NOTED. IVF 1/2 NS RUNNING AT 5 ML/HR. PT HAS OGT THAT IS CONFIRMED VIA AIR AUSCULTATION. RESIDUALS 80 ML. VITAL AF RUNNING THROUGH OGT AT RATE OF 20ML/HR W/ FWF 100 ML Q4HR. REDUCED RATE OF FEEDING DOWN TO 10 DUE TO RESIDUALS. BED IS LOCKED W/ HOB AT 30 [address]ES. SAFETY MEASURES IN PLACE. CALL LIGHT WITHIN REACH. WILL CONTINUE TO MONITOR.
--- NOTE | 2019-10-08 21:00 | NUR ---
2100 MEDICATIONS PROVIDED. VAP ORAL CARE DONE. BG BELOW 90. NO COVERAGE NEEDED AT THIS TIME. PT HAS TEMP OF 97.1 VIA TEMPORAL ARTERY SCAN. PLACED BLANKET ON PT. WILL CONTINUE TO MONITOR.
[2019-10-08] MEDS: BETHANECHOL 25 MG TAB NG SCH (21:12)
[2019-10-08] MEDS: ENOXAPARIN 60 MG/0.6 ML SYR SUBQ SCH (23:20)
--- NOTE | 2019-10-08 23:30 | NUR ---
WINDOW CHECK ON PT SHOWED PT APPEARING TO BE RESTING. PT NOT AROUSABLE TO VOICE NOR TAPPING ON WINDOW. VSS AT THIS TIME. VENT SETTING REMAIN THE SAME. WILL CONTINUE TO MONITOR.
[2019-10-09] VITALS (103 sets, daily range): BP systolic 89–124; BP diastolic 36–87
--- NOTE | 2019-10-09 01:00 | NUR ---
VAP ORAL CARE DONE. PT WAS REPOSITIONED TO AVOID COMPLICATIONS OF SKIN BREAKDOWN. PT TOLERATED REPOSITIONING WELL. NO OBVIOUS SIGNS OF DISTRESS SEEN. WILL CONTINUE TO MONITOR.
[2019-10-09] MEDS: fentaNYL 1 MG in NACL 0.9% 80 ML IV PRN (05:11)
[2019-10-09] MEDS: MIDAZOLAM MDV 100 MG in NACL 0.9% 80 ML IV PRN ×2 (05:13→19:53)
[2019-10-09 06:18] LABS: ANION GAP 7.6 (8-16); CARBON DIOXIDE 33.9 mmol/L (21-32); POTASSIUM 3.5 mmol/L (3.5-5.1)
[2019-10-09 06:19] LABS: BASOPHILS % (AUTO) 0.2 % (0.0-2.0); EOSINOPHILS # (AUTO) 0.1 K/uL (0-0.4); EOSINOPHILS % (AUTO) 1.2 % (0.0-4.0); HEMATOCRIT 31.5 % (36-48); HEMOGLOBIN 10.6 g/dL (12.0-16.0); LYMPHOCYTES # (AUTO) 1.7 K/uL (2.5-16.5); LYMPHOCYTES % (AUTO) 13.7 % (20.5-51.1); MEAN CORPUSCULAR HEMOGLOBIN 27 pg (27-31); MEAN CORPUSCULAR HGB CONC 34 g/dL (33-37); MEAN CORPUSCULAR VOLUME 81.3 fL (80-94); MONOCYTES % (AUTO) 8.5 % (1.7-9.3); NEUTROPHILS # (AUTO) 9.3 K/uL (1.8-7.7); NEUTROPHILS % (AUTO) 76.4 % (42.2-75.2); RED BLOOD CELL COUNT(AUTO) 3.87 MIL/uL (4.20-5.40); RED CELL DISTRIBUTION WIDTH 13.2 % (11.6-13.7)
[2019-10-09 06:38] LABS: PHOSPHORUS 3.3 mg/dL (2.5-4.9)
--- NOTE | 2019-10-09 06:55 | NUR ---
RECEIVED PT ON SETTINGS OF AC/VC 28,300,+12,40% VENT IS PLUGGED INTO RED OUTLET, ALARMS ARE ON AND FUNCTIONING, AMBU BAG AT BEDSIDE. PT SHOWS NO SIGN OF DISTRESS AT THIS TIME. WILL CONTINUE TO MONITOR.
[2019-10-09] MEDS: BLOOD GLUCOSE MONITORING 1 DEV DEV FS SCH ×4 (08:12→21:00)
[2019-10-09 08:23] LABS: PLATELET COUNT (AUTO) 417 K/uL (140-450)
[2019-10-09 08:24] LABS: WHITE BLOOD COUNT (AUTO) 12.1 K/uL (4.8-10.8)
[2019-10-09] MEDS: FUROSEMIDE 20 MG/2 ML VIAL IVP SCH (08:35)
[2019-10-09] MEDS: ASCORBIC ACID 500 MG TAB NG SCH (08:35)
[2019-10-09] MEDS: PANTOPRAZOLE 40 MG INJ VIAL IVP SCH ×2 (08:35→20:49)
[2019-10-09] MEDS: ZINC SULF 220 MG CAP NG SCH (08:36)
[2019-10-09] MEDS: BETHANECHOL 25 MG TAB NG SCH ×2 (08:36→20:49)
[2019-10-09] MEDS ORDERED: ENOXAPARIN 40 MG/0.4 ML SYR SUBQ SCH (09:00)
[2019-10-09] MEDS: AZITHROMYCIN 250 MG in DEXTROSE 5% 250 ML IV SCH (09:07)
--- NOTE | 2019-10-09 09:17 | NUR ---
SX: THIN/CORADO SECRETIONS
[2019-10-09] MEDS: ENOXAPARIN 60 MG/0.6 ML SYR SUBQ SCH ×2 (09:28→20:54)
[2019-10-09] MEDS: MORPHINE SULFATE 100 MG in NACL 0.9% 90 ML IV PRN (09:56)
--- NOTE | 2019-10-09 10:50 | NUR ---
CHANGED PT SET PEEP TO +[address] MUELLER, VERBAL ORDER. PT IS TOLERATING AND SHOWS NO DISTRESS.
--- NOTE | 2019-10-09 12:42 | NUR ---
PT REPOSITIONED AT THIS TIME, FLACC 0, RASS -3. TUBE FEEDING RUNNING AT 10MLS/H. AFEBRILE. BLOOD SUGAR IS 89. SAFETY MEASURES IN PLACE. WILL CONTINUE TO MONITOR.
--- NOTE | 2019-10-09 15:04 | NUR ---
SX: THIN/CORADO SECRETIONS. CHANGED PT HOLLIDAY AND HME. PT TOLERATED AND IS RESTING COMFORTABLE.
--- NOTE | 2019-10-09 15:55 | NUR ---
PT REPOSITIONED AT THIS TIME, TEMP 98.7, RASS -3, FLACC 0. TUBE FEEDING RESIDUALS 20MLS, FEEDING RATE INCREASED TO 20ML/H. ORAL SUCTION DONE. BLOOD SUGAR 67. SAFETY MEASURES IN PLACE, WILL CONTINUE TO MONITOR. Addendum: 10/09/19 at 1621 by Meliton Anderson RN WILL GIVE ORANGE JUICE TO INCREASE BLOOD SUGAR
--- NOTE | 2019-10-09 16:51 | NUR ---
LEFT PT ON DOCUMENTED SETTINGS. VENT CHECK DONE. PT SHOWS NO SIGN OF DISTRESS AT THIS TIME. VENT IS PLUGGED INTO RED OUTLET, ALARMS ARE ON AND FUNCTIONING, AMBU BAG AT BEDSIDE.
--- NOTE | 2019-10-09 16:51 | NUR ---
ETT IS SECURED AND INTACT.
--- NOTE | 2019-10-09 18:09 | NUR ---
PT REPOSITIONED AT THIS TIME, RESIDUALS CHECKED 0 ML. TUBE FEEDING ADVANCED TO 30ML/S. BLOOD SUGAR 92 AT THIS TIME. WILL CONTINUE TO MONITOR.
--- NOTE | 2019-10-09 19:10 | NUR ---
PT ENDORSED TO NIGHT NURSE FOR CONTINUITY OF CARE.
--- NOTE | 2019-10-09 19:30 | NUR ---
RECEIVED CHANGE OF SHIFT REPORT FROM DAY SHIFT NURSE. PT IS AROUSABLE TO LIGHT TOUCH. EYES PERRL 3MM. GCS=7. NO APPARENT DISTRESS NOTED. PT IS INTUBATED W/ ETT 7.5 CM TAPED 20 AT THE TEETH. VENT SETTINGS ARE A/CVC FIO2 35% VT 300 RATE 28 PEEP 8. EQUAL RISE AND FALL OF CHEST. COARSE LUNG SOUNDS THROUGHOUT. S1S2 HEARD. +2 RADIAL PULSES FELT. CAP REFILL <3 SECONDS. OGT NOTED AND CONFIRMED VIA AIR AUSCULTATION. VITAL AF RUNNING AT 30ML/HR W/ FWF 100ML Q4HR. NO GASTRIC RESIDUALS. PT HAS RIJ TRIPLE LUMEN W/ VERSED RUNNING AT 6MG/HR (6ML/HR) AND MORPHINE 2MG/HR (2ML/HR) FOR RASS SCORE -3 DRY WEIGHT = 62KG. DRESSING IS DCI. CATHETER IS ASYMPTOMATIC, PATENT, INTACT. JASSO CATHETER NOTED. SKIN INTACT, DRY, WARM. TEMP IS 98.9. BG 98. BED IS LOCKED W/ HOB 30 DEGREES. CALL LIGHT WITHIN REACH. WILL CONTINUE TO MONITOR.
--- NOTE | 2019-10-09 19:34 | NUR ---
RECEIVED REPORT FROM AM SHIFT. PATIENT SEEN AND ASSESSED. PATIENT IS INTUBATED WITH ETT SIZE 7.5 AND SECURED WITH ANCHOR-FAST AT 21CM @LIP. FOUND PATIENT ON VENT SETTINGS: AC/VC 28, 300, +8, 40% WITH SPO2 OF 96%. FiO2 TITRATED TO 35% WITH SPO2 OF 95%. AUSCULTATION REVEALS COARSE BILATERAL BREATH SOUNDS. VENT PLUGGED IN RED OUTLET, ALARMS SET AND AUDIBLE, HOB > 30 DEGREES, AND BVM AT BEDSIDE. PATIENT APPEARS TO BE IN NO APPARENT RESPIRATORY DISTRESS AT THIS TIME. PRN MDI TX NOT INDICATED AT THIS MOMENT. WILL CONTINUE TO MONITOR PATIENT.
--- NOTE | 2019-10-09 21:00 | NUR ---
PT AROUSABLE TO LIGHT TOUCH. DOES NOT FOLLOW SIMPLE COMMANDS. NO APPARENT DISTRESS NOTED. NO GASTRIC RESIDUALS. 2100 MEDICATIONS PROVIDED. VAP ORAL CARE PERFORMED. VSS AT THIS TIME. WILL CONTINUE TO MONITOR.
--- NOTE | 2019-10-09 23:45 | NUR ---
SPO2 BELOW 90 IN HIGH 80'S FOR GOOD AMOUNT OF TIME. RT MADE AWARE. DEEP SUCTIONED AND SUCTIONED INSIDE MOUTH W/ SUCCESS. SPO2 ABOVE 95. VAP ORAL CARE PROVIDED. BED IS LOCKED W/ HOB 30 DEGREES. WILL CONTINUE TO MONITOR.
[2019-10-10] VITALS (104 sets, daily range): BP systolic 86–148; BP diastolic 41–85
--- NOTE | 2019-10-10 02:00 | NUR ---
CHECKED PT THROUGH WINDOW. PT HAS EYES CLOSED W/ APPEARING TO BE RESTING. NO APPARENT SIGNS OF DISTRESS. VISIBLE EQUAL RISE AND FALL OF CHEST. VSS AT THIS TIME. ROOM REMAINS FREE FROM CLUTTER. WILL CONTINUE TO MONITOR.
--- NOTE | 2019-10-10 05:15 | NUR ---
MORNING CARE AND VAP ORAL CARE WAS GIVEN. PT AROUSABLE TO LIGHT TOUCH. GCS=7. SKIN IS INTACT. PT WAS REPOSITIONED. SPO2 IN LOW 90'S. EQUAL RISE AND FALL OF CHEST. ETT REMAINED IN PLACE. FIO2 WAS LOWERED TO 35% DURING SHIFT. 350 UO. OTHER VITALS STABLE AT THIS TIME. WILL CONTINUE TO MONITOR.
[2019-10-10 06:23] LABS: HEMATOCRIT 33.1 % (36-48); HEMOGLOBIN 10.8 g/dL (12.0-16.0); MEAN CORPUSCULAR HEMOGLOBIN 27 pg (27-31); MEAN CORPUSCULAR HGB CONC 33 g/dL (33-37); MEAN CORPUSCULAR VOLUME 81.7 fL (80-94); PLATELET COUNT (AUTO) 469 K/uL (140-450); RED BLOOD CELL COUNT(AUTO) 4.05 MIL/uL (4.20-5.40); RED CELL DISTRIBUTION WIDTH 13.2 % (11.6-13.7); WHITE BLOOD COUNT (AUTO) 13.7 K/uL (4.8-10.8)
--- NOTE | 2019-10-10 06:42 | NUR ---
PATIENT STILL REMAINS ON VENTILATOR SUPPORT. NO CHANGE IN VENT SETTINGS AT THIS TIME. AIRWAY IS PATENT. NO RESPIRATORY DISTRESS NOTED AT THIS MOMENT. WILL CONTINUE TO MONITOR PATIENT.
[2019-10-10 06:54] LABS: ANION GAP 9.3 (8-16); CARBON DIOXIDE 33.8 mmol/L (21-32); POTASSIUM 3.1 mmol/L (3.5-5.1)
[2019-10-10 06:56] LABS: PHOSPHORUS 3.7 mg/dL (2.5-4.9)
--- NOTE | 2019-10-10 07:29 | NUR ---
REPORT GIVEN TO TRAM FAJARDO TO ENSURE CONTINUITY OF CARE
--- NOTE | 2019-10-10 07:30 | NUR ---
RECEIVED BEDSIDE REPORT FROM INDUCTION HEATING EQUIPMENT SETTER NURSE LAKEISHA FOR CONTINUITY OF CARE. PT IS INTUBATED, RESPONDED TO LIGHT PAIN. RESPIRATION EVEN AND UNLABORED ON ETT TO VENT, SETTING: A/C VS, FIO2 35, VT 300, PEEP 8, FLOW 30, RATE 28, P MAX 58, SPO2 AT 93%. FLACC 0. NO SIGNS OF ACUTE DISTRESS NOTED. IV ON RIJ, CLEAN AND INTACT, INFUSING [place] AT6ML/HR = 6 MG/HR, MORPHINE 2 ML/HR =2MG/HR AND D5NS AT 5 ML/HR. OGT RUNNING VITAL 1.2 AT 40 ML/HR AND WATER FLUSH 40 ML/HR Q3. SKIN CLEAN AND DRY. JASSO IN PLACE AND DRAINING YELLOW URINE WITH GRAVITY. ENHANCED PRECAUTION IN PLACE. TELE MONITOR ATTACHED. SAFETY MEASURES IN PLACE. BED IN LOW POSITION AND LOCKED.
--- NOTE | 2019-10-10 07:49 | NUR ---
CHECKED BLOOD GLUCOSE AND RECEIVED 106, NO COVERAGE NEEDED.
[2019-10-10] MEDS: BLOOD GLUCOSE MONITORING 1 DEV DEV FS SCH ×4 (07:56→20:26)
--- NOTE | 2019-10-10 08:29 | NUR ---
RECEIVED A CALL FROM PT'S SON, UPDATED SON WITH PT'S CURRENT CONDITION AND SON WAS AWARE.
--- NOTE | 2019-10-10 08:45 | NUR ---
DR MUELLER IS ASSESSING PT AT BEDSIDE. NO SIGNS OF DISTRESS NOTED.
[2019-10-10 08:54] LABS: BASOPHILS % (MANUAL) 0 % (0-2); EOSINOPHILS % (MANUAL) 4 % (0-4); LYMPHOCYTES % (MANUAL) 22 % (20-46); MONOCYTES % (MANUAL) 4 % (5-12)
[2019-10-10] MEDS: ASCORBIC ACID 500 MG TAB NG SCH (09:43)
[2019-10-10] MEDS: PANTOPRAZOLE 40 MG INJ VIAL IVP SCH ×2 (09:43→20:25)
[2019-10-10] MEDS: ENOXAPARIN 60 MG/0.6 ML SYR SUBQ SCH (09:44)
[2019-10-10] MEDS: BETHANECHOL 25 MG TAB NG SCH ×2 (09:45→20:26)
[2019-10-10] MEDS: ZINC SULF 220 MG CAP NG SCH (09:45)
--- NOTE | 2019-10-10 09:45 | NUR ---
CHECKED OGT RESIDUAL AND RECEIVED 10 ML/HR. ADMINISTERED MEDS PER MD ORDER VIA OGT AND SUBS, FLUSHED BEFORE AND AFTER MEDS ADMINISTERED, MEDS EDUCATION PROVIDED AND REINFORCEMENT NEEDED. USED PILLOWS TO EVEN PRESSURE BONY AREA. FLACC 0. NO ACUTE DISTRESS NOTED.TELE MONITOR ATTACHED.
--- NOTE | 2019-10-10 10:06 | NUR ---
PT INCREASED MOVEMENT AND ATTEMPTED TO RISE UP ARMS, FACIAL GRIMACING,RESTLESS, INCREASED VERSED FROM 6 ML/HR (6 MG/HR) TO 7ML/HR AND MORPHINE FROM 2 ML/HR (2 GM/HR), PT IS CALM AND RESTING AT THIS TIME. NO ACUTE DISTRESS NOTED. TELE MONITOR ATTACHED. SAFETY MEASURES IN PLACE. Addendum: 10/10/19 at 1241 by Anais Dumont RN INCOMPLETE NOTE: MORPHINE FROM 2 ML/HR (2MG/HR) TO 3 ML/HR (3MG/HR).
[2019-10-10] MEDS ORDERED: KCL 20 MEQ/WATER INJ PREMIX 200 ML IV ONE (11:05)
--- NOTE | 2019-10-10 11:44 | NUR ---
APPLIED SOFT WRIST RESTRAINT BILATERALLY .
--- NOTE | 2019-10-10 11:58 | NUR ---
ADMINISTERED 1ST BAG OF POTASSIUM FOR LOW K 3.1 FROM AM LAB. CHECKED BLOOD GLUCOSE AND RECEIVED 115 , NO COVERAGE NEEDED. CHECKED OGT RESIDUAL AND RECEIVED 5 ML.HUNG A NEW BOTTLE OF TUBE FEEDING, CHANGED ALL TUBING, RUNNING AT 50 ML/HR AND H2O FLUSH 100 ML/Q4. PT IS RESTING ON BED. RESPIRATION EVEN AND UNLABORED, SPO2 AT 93% AND FLACC 0 . NO ACUTE DISTRESS NOTED. TELE MONITOR ATTACHED. SAFETY MEASURES IN PLACE.
[2019-10-10] MEDS: MIDAZOLAM MDV 100 MG in NACL 0.9% 80 ML IV PRN (13:08)
--- NOTE | 2019-10-10 13:08 | NUR ---
STARTED A NEW BAG OF VERSED AND CONTINUE INFUSING AT 7 ML/HR; VITAL SIGNS: 112/64 PLUSE 77, RR 29, AND SPO2 AT 92%.
--- NOTE | 2019-10-10 13:59 | NUR ---
10/10/19 RD FOLLOW UP COMPLETED PLEASE REFER TO NUTRITION ASSESSMENT UNDER CARE ACTIVITY FOR ESTIMATED NUTRITIONAL NEEDS. 1. CONTINUE VITAL HIGH PROTEIN AT GOAL RATE OF 60 ML/HR X 24 HR -THIS WILL PROVIDE 1440 KCAL, 126 GM PROTEIN, AND 1204 ML FREE WATER, WHICH WILL MEET 93% ESTIMATED KCAL NEEDS AND 82% ESTIMATED PROTEIN NEEDS. 2. CONTINUES FREE WATER FLUSH OF 100 ML Q4H PER MD 3. CONTINUE VITAMIN C AND ZINC FOR SKIN INTEGRITY 4. RD TO FOLLOW-UP 2-3 DAYS, HIGH RISK. DUSTIN LOU RD
--- NOTE | 2019-10-10 14:25 | NUR ---
VENT HIGH PEAK WENT OFF, WENT IN AND ASSESSED PT. SUCTIONED 2X AND RECEIVED MINIMAL SCANT SPUTUM, ALSO SUCTIONED PT'S MOUTH. CHECKED OGT RESIDUAL AND RECEIVED 10 ML/HR, CONTINUED RUNNING AT 50 ML/HR. APPLIED NEW PULSE OXIMETER. FLACC 0. NO SIGNS OF DISTRESS NOTED. TELE MONITOR ATTACHED.
--- NOTE | 2019-10-10 14:40 | NUR ---
PT IS BITING ON TUBE AND HIGH PEAK WENT OFF, INCREASED VERSED FROM 7 ML/HR TO 8 ML/HR, VITAL SIGNS: 128/56, PULSE 98, RR 25, SPO2 AT 90%. CALLED RT TO ASSESS VENT, RT NELLY IS BY BEDSIDE.
--- NOTE | 2019-10-10 14:50 | NUR ---
NO WEANING TRAIL DONE TO PT PEAK PRESSURES WHERE ELEVATED AND O2 DROPPED, PT IS NO AWAKE. WILL CONTINUE TO MONITOR. Addendum: 10/10/19 at 1827 by Hetal Quijano RT NO WEANING TRAIL DONE DUE TO PT PEAK PRESSURES WERE ELEVATED AND O2 DROPPED, PT IS NOT AWAKE. WILL CONTINUE TO MONITOR. WILL INDORSE TO NOC
--- NOTE | 2019-10-10 14:50 | NUR ---
Called to the bedside by RN due to vent alarming high pressures, RN sxn pt and checked for kinks, peak pressured continue to increased, changed pt to VC PC 22 and FIO2 55 for lung protective strategies, set pressures to target previous set Vt, spoke with MD to confirm vent setting change. Will continue to monitor and titrate O2 as necessary. Addendum: 10/10/19 at 1828 by Hetal Quijano RT Asked MD to put new Vent order in for PC
--- NOTE | 2019-10-10 14:52 | NUR ---
ADMINISTERED 2ST BAG OF POTASSIUM FOR LOW K 3.1 FROM AM LAB. FLACC 0 . NO ACUTE DISTRESS NOTED. TELE MONITOR ATTACHED. SAFETY MEASURES IN PLACE.
--- NOTE | 2019-10-10 15:50 | NUR ---
PT IS RESTING COMFORTABLY, RESPIRATION EVEN AND UNLABORED ON ETT TO VENT, SPO2 AT 92%. FLACC 0. NO ACUTE SIGN OF DISTRESS NOTED. TELE MONITOR ATTACHED.SAFETY MEASURES IN PLACE.
--- NOTE | 2019-10-10 15:58 | NUR ---
BP 86/50 PULSE 71, DR GODOY MADE AWARE. PER DR GODOY, WILL ORDER 500 ML BOLUS.
[2019-10-10] MEDS ORDERED: NACL 0.9% 500 ML IV ONE (16:00)
--- NOTE | 2019-10-10 16:02 | NUR ---
DR PANCHAL AT DOOR-SIDE.
--- NOTE | 2019-10-10 16:04 | NUR ---
STARTED NS 500 ML BOLUS PER MD ORDER.
[2019-10-10] MEDS: MORPHINE SULFATE 100 MG in NACL 0.9% 90 ML IV PRN (16:46)
--- NOTE | 2019-10-10 16:46 | NUR ---
STARTED A NEW BAG OF MORPHINE AND CONTINUE INFUSING AT 3 ML/HR; VITAL SIGNS: 123/70 PULSE 80, RR 28, AND SPO2 AT 94%, FLACC 0.
--- NOTE | 2019-10-10 16:51 | NUR ---
BOLUS COMPLETED,; VITAL SIGNS: BP 123/70 PULSE 72 RR 28 SPO2 97% FLACC 0. DR GODOY MADE AWARE OF CURRENT VITAL SIGNS.
--- NOTE | 2019-10-10 17:39 | NUR ---
CHECKED BLOOD GLUCOSE AND RECEIVED 117, NO COVERAGE NEEDED. CHECKED OGT RESIDUAL AND RECEIVED 10 ML/HR. WITH ASSIST FROM ANOTHER RN, PROVIDED HYGIENE CARE AND REPOSITIONED PATIENT. USED PILLOWS TO OFFLOAD PRESSURE FROM ARMS, BACK AND LEGS. PT TOLERATED WELL. NO ACUTE DISTRESS NOTED. TELE MONITOR ATTACHED. SAFETY MEASURES IN PLACE. BED LOCKED.
--- NOTE | 2019-10-10 19:00 | NUR ---
received pt on documented setting. vent plugged into red outlet. bmv at bedside. alarms audible and set. ett secured and intact. sx small amount of thick white secretion. pt is agitated. will cont to monitor
--- NOTE | 2019-10-10 19:16 | NUR ---
ENDORSED PT AT BEDSIDE TO MANAGER PROPOSAL NURSE EULALIO FOR CONTINUITY OF CARE. PT IS IN STABLE CONDITION. TELE MONITOR ATTACHED. SAFETY MEASURES IN PLACE. BED LOCKED.
--- NOTE | 2019-10-10 19:25 | NUR ---
RECEIVED REPORT FROM DAYSMOFT NURSE. PATIENT ETT TO VENT, ACPC- FI02 55%, PINSP 22, RATE 28 PEEP 8. SATURATIONS 92%, BREATHING IS EVEN AND UNLABORED. LUNG SOUNDS SOME RHONCHI/COARSE BILATERALLY AT UPPER LOBES AND BASES. S1S2, SR ON MONITOR. HEART RATE-71 BPM, BP 103/53. SKIN WARM AND DRY AFEBRILE-98.1 TEMPORAL. INTACT. BUT GENERALIZED EDEMA NOTED AT UPPER EXTREMITIES. RIJ IN PLACE, INFUSING VERSED-8MG/HR (8ML/HR) AND MORPHINE-3MG/HR (3ML/HR). DRY WEIGHT USED 62 KG, RASS -3. PATIENT MAKES FACIAL EXPRESSIONS WITH VOICE/NAME, AND WITHDRAWS TO PAIN. CANNOT OPEN EYES, PERRL 3MM BRISK. OGT IN PLACE, CONNECTED TO VITAL AF INFUSING AT 50ML/HR. AIR CHECK COMPLETE/CONFIRMED, RESIDUALS 0ML. TOLERATING WELL. ABDOMEN LARGE AND NONTENDER, ACTIVE BOWEL SOUNDS. JASSO IN PLACE WITH CLEAR YELLOW URINE DRAINING BY GRAVITY. SCD's CONNECTED. BILATERAL SOFT WRIST RESTRAINTS IN PLACE AND SECURED WITH QUICK RELEASE KNOTS. SKIN INTACT AND CIRCULATION WNL, CAP REFILL LESS THAN 3 SECONDS. HOB 30 DEGREES, BED LOCKED AND IN LOWEST POSITION, SIDERAILS UP. FLACC 0, WILL CONTINUE TO MONITOR.
[2019-10-10] MEDS ORDERED: METOCLOPRAMIDE 10 MG/10 ML SYRP UDC NG SCH (19:50)
[2019-10-10] MEDS: DOCUSATE 100 MG/10 ML UDC GT PRN (20:26)
--- NOTE | 2019-10-10 21:15 | NUR ---
BLOOD SUGAR WITHIN NORMAL RANGE, NO COVERAGE NEEDED. NEW ORDERS RECEIVED FROM RESIDENT MD, SCHEDULED MEDS GIVEN. UPDATED RESIDENT MD ON PATIENT CONDITION. MD AWARE OF BORDERLINE LOW BLOOD PRESSURE.
--- NOTE | 2019-10-10 22:48 | NUR ---
VENT ALARMING,PT ST ON MONITOR AND RESPIRATIONS INCREASING. PATIENT MOVING AROUND IN BED, FACIAL GRIMACING NOTED, PATIENT ATTEMPTING TO PULL AT EQUIPMENT. TURNED AND REPOSITIONED PATIENT FOR COMFORT AND TO OFFLOAD PRESSURE AREAS. PATIENT HAD A MODERATE SIZE BOWEL MOVEMENT, SEMISOFT AND BROWN. PROVIDED SKIN CARE AND JASSO CARE. SKIN INTACT. REINFORCED RESTRAINTS, SKIN AND CIRCULATION INTACT. INCREASED MORPHINE DRIP AND VERSED. BED LOCKED AND IN LOWEST POSITION, HOB 30 DEGREES, RESTRAINTS AND FEEDING REMAIN IN PLACE. ALL NEEDS MET AT THIS TIME. WILL CONTINUE TO MONITOR.
[2019-10-11] VITALS (86 sets, daily range): BP systolic 92–158; BP diastolic 20–99
--- NOTE | 2019-10-11 00:15 | NUR ---
RASS -3, CONTINUED ON SEDATION DRIPS, WITHDRAWS TO SUCTION AND TOUCH. VAP CARE PROVIDED, SMALL AMOUNT OF SECRETIONS NOTED. TEMP AND VITALS STABLE. HEART RATE FLUCTUATES BETWEEN 90's-110's BPM. REPOSITIONED.
--- NOTE | 2019-10-11 00:45 | NUR ---
RESIDUALS LESS THAN 20ML, TOLERATING WELL. INCREASED FEEDING TO GOAL 60ML/HR. CONTINUE TO MONITOR RESIDUALS, INTAKE AND OUTPUT.
--- NOTE | 2019-10-11 02:10 | NUR ---
SAFETY MEASURES IN PLACE, HOB 30 DEGREES, SIDERAILS UP. CONNECTED TO MONITOR, FLACC 0, ALL VITALS WITHIN NORMAL LIMITS. BREATHING IS UNLABORED, EQUAL CHEST RISE AND FALL. VENT SETTINGS: ACPC 28 FI02 55% PINSP 22 PEEP 8. SATURATIONS 95%
[2019-10-11] MEDS: MIDAZOLAM MDV 100 MG in NACL 0.9% 80 ML IV PRN (02:45)
--- NOTE | 2019-10-11 04:35 | NUR ---
PROVIDED SPONGE BATH, JASSO CARE, SKIN CARE, VAP CARE. PATIENT TOLERATED FAIRLY. WITHDRAWS TO PAIN AND MOVES ARMS AND HEAD. DOES NOT OPEN EYES. SKIN INTACT, JASSO IN PLACE DRAINING CLEAR YELLOW URINE. RESTRAINTS RELEASED TO ASSESS SKIN. NO SIGNS OF INJURIES. RIJ IN PLACE, DRESSING DRY INTACT. VERSED AND MORPHINE INFUSING. SAFETY MEASURES IN PLACE.
--- NOTE | 2019-10-11 05:46 | NUR ---
PT REMAINS ON DOCUMENTED SETTINGS. NO CHANGES MADE. PATENT AIRWAY. ETT SECURED AND INTACT. WILL CONT TO MONITOR
--- NOTE | 2019-10-11 06:05 | NUR ---
RESIDUALS 125ML. HELD FEEDING aT THIS TIME. BLOOD SUGAR CHECK 116, NO COVERAGE PER SLIDING SCALE. REINFORCED SOFT WRIST RESTRAINTS, SKIN INTACT. REPOSITIONED PATIENT FOR COMFORT AND SUCTIONED SECRETIONS ORALLY. RIJ IN PLACE, VERSED AT 9MG/HR, AND MORPHINE AT 5MG/HR, WILL START TO WEAN SEDATION FOR CPAP TRIALS FOR A.M SHIFT RT. IN TO ASSESS PATIENT, AWARE OF WEANING SEDATION MEDS.
[2019-10-11 06:14] LABS: BASOPHILS # (AUTO) 0.1 K/uL (0.00-0.22); BASOPHILS % (AUTO) 0.5 % (0.0-2.0); EOSINOPHILS # (AUTO) 0.6 K/uL (0-0.4); EOSINOPHILS % (AUTO) 4.7 % (0.0-4.0); HEMATOCRIT 27.9 % (36-48); HEMOGLOBIN 9.2 g/dL (12.0-16.0); LYMPHOCYTES # (AUTO) 1.4 K/uL (2.5-16.5); LYMPHOCYTES % (AUTO) 11.6 % (20.5-51.1); MEAN CORPUSCULAR HEMOGLOBIN 27 pg (27-31); MEAN CORPUSCULAR HGB CONC 33 g/dL (33-37); MEAN CORPUSCULAR VOLUME 82.6 fL (80-94); MONOCYTES # (AUTO) 0.9 K/uL (0.8-1.0); MONOCYTES % (AUTO) 7.5 % (1.7-9.3); NEUTROPHILS % (AUTO) 75.7 % (42.2-75.2); PLATELET COUNT (AUTO) 401 K/uL (140-450); RED BLOOD CELL COUNT(AUTO) 3.37 MIL/uL (4.20-5.40); RED CELL DISTRIBUTION WIDTH 13.4 % (11.6-13.7); WHITE BLOOD COUNT (AUTO) 11.9 K/uL (4.8-10.8)
[2019-10-11 06:48] LABS: ANION GAP 9.1 (8-16); CARBON DIOXIDE 32.1 mmol/L (21-32); CREATININE 0.9 mg/dL (0.6-1.3); POTASSIUM 3.2 mmol/L (3.5-5.1)
--- NOTE | 2019-10-11 07:10 | NUR ---
RECEIVED PT ON DOCUMENTED SETTINGS. VENT IS PLUGGED INTO RED OUTLET, ALARMS ARE ON AND FUNCTIONING, AMBU BAG AT BEDSIDE. PT SHOWS NO SIGN OF DISTRESS AT THIS TIME. ETT IS SECURED AND INTACT. WILL CONTINUE TO MONITOR.
--- NOTE | 2019-10-11 07:20 | NUR ---
RECEIVED BEDSIDE REPORT FROM MANAGER GYN NURSE, PT IS SEDATED RASS -3, VSS, FLACC 0, ETT TO VENT WITH ACPC FIO2 55%, PEEP 8, R 22, NO S/S OF DISTRESS, RHONCHI LUNG SOUNDS GONSALO. 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 WRIST FOR SAFETY, SKIN IS INTACT, WARM AND DRY TO TOUCH, CENTRAL LINE TO RIJ, TLC, PATENT, RUNNING MORPHINE AT 1MG/HR, VERSED AT 2 MG/HR, HOB ELEVATED TO 30 DEGREES, SAFETY MEASURES IN PLACE, WILL CONTINUE TO MONITOR.
[2019-10-11 07:34] LABS: MAGNESIUM 2.1 mg/dL (1.8-2.4)
[2019-10-11] MEDS: BLOOD GLUCOSE MONITORING 1 DEV DEV FS SCH ×4 (08:03→21:08)
[2019-10-11] MEDS: ASCORBIC ACID 500 MG TAB NG SCH (08:52)
[2019-10-11] MEDS: PANTOPRAZOLE 40 MG INJ VIAL IVP SCH ×2 (08:52→21:09)
[2019-10-11] MEDS: ENOXAPARIN 40 MG/0.4 ML SYR SUBQ SCH (08:52)
[2019-10-11] MEDS: ZINC SULF 220 MG CAP NG SCH (08:52)
--- NOTE | 2019-10-11 09:00 | NUR ---
SCHEDULED MEDICATION GIVEN, PATIENT TOLERATED WELL, HELD VERSED AND MORPHINE DRIP AT THIS TIME FOR SEDATION VACATION, RT AWARE.
--- NOTE | 2019-10-11 09:35 | NUR ---
CPAP TRIAL ATTEMPTED AT THIS TIME. TRIAL WAS FOR 25MINS. PT PLACED BACK ON DOCUMENTED SETTINGS DUE TO BEING TACHYPNEIC AND DESATURATION. ALSO WEANED SET PEEP TO +[address] MUELLER, VERBAL ORDER. PT SHOWS NO SIGN OF DISTRESS AT THIS TIME, WILL CONTINUE TO MONITOR.
--- NOTE | 2019-10-11 10:00 | NUR ---
NO S/S OF DISTRESS, PER RT PT FAILED ON WEANING, WILL TRY AGAIN LATER, PT STILL LETHARGIC, NOT ABLE TO WAKE UP AT THIS TIME. VSS, FLACC 0. POSITION CHANGED FOR OFF LOAD PRESSURE.
[2019-10-11] MEDS ORDERED: POTASSIUM CHLORIDE 20% 40 MEQ/15 ML UDC NG SCH (10:15)
--- NOTE | 2019-10-11 11:00 | NUR ---
DR. MUELLER CAME IN TO SEE PATIENT AT BEDSIDE, UPDATED PATIENT CONDITION, WILL FOLLOW UP WITH NEW ORDERS.
--- NOTE | 2019-10-11 12:00 | NUR ---
STILL LETHARGIC, RESPOND TO PAINFUL STIMULI, NOT ABLE TO OPEN EYES, DR. GODOY MADE AWARE, CONTINUE TO HOLD VERSED AND MORPHINE DRIP AT THIS TIME, VSS, FLACC 0, NO S/S OF DISTRESS, ORAL CARE PROVIDED, POSITION CHANGED FOR OFF LOAD PRESSURE.
--- NOTE | 2019-10-11 15:30 | NUR ---
PATIENT WAKES UP, RESTLESSNESS, FLIGHTING WITH THE VENTILATOR WITH RR 40-50, HR 119, BP 142/99, OPEN EYES, BUT NOT FOLLOW COMMANDS, RESTARTED SEDATION WITH LOW DOSE, WILL CONTINUE TO MONITOR.
--- NOTE | 2019-10-11 16:00 | NUR ---
NO S/S OF DISTRESS, VSS, FLACC 0, PM CARE AND JASSO CATHETER CARE PROVIDED, ORAL CARE PROVIDED, POSITION CHANGED FOR OFF LOAD PRESSURE.
--- NOTE | 2019-10-11 17:02 | NUR ---
LEFT PT ON DOCUMENTED SETTINGS. PT SHOWS NO SIGN OF DISTRESS. VENT IS PLUGGED INTO RED OUTLET, ALARMS ARE ON AND FUNCTIONING, AMBU BAG AT BEDSIDE. ETT IS SECURED AND INTACT.
--- NOTE | 2019-10-11 18:00 | NUR ---
NO CHANGE OF CONDITION, VSS, FLACC 0, POSITION CHANGED FOR OFF LOAD PRESSURE.
--- NOTE | 2019-10-11 19:27 | NUR ---
REPORT GIVEN TO WOOD PREPARATION SUPERVISOR NURSE AT BEDSIDE FOR CONTINUE OF CARE, PT IS IN STABLE CONDITION AT THIS TIME.
--- NOTE | 2019-10-11 19:30 | NUR ---
RECEIVED REPORT FROM DAYSHIFT NURSE AT PATIENTS BEDSIDE. ETT TO VENT, ACPC 28 FI02 55%, PINSP 22, PEEP 7. LUNG SOUNDS ARE CLEAR AT UPPER LOBES BILATERALLY BUT DIMINISHED AT BASES. BREATHING IS TACHYPNEIC-RR: 35, SATURATIONS: 92%. HR: ST ON MONITOR- 104 BPM, BP STABLE: 136/75. RIJ IN PLACE, VERSED- 2MG/HR-2ML/HR, AND MORPHINE: 1 MG/HR- 1ML/HR. RASS -3 DRY WEIGHT USED 62KG. WITHDRAWS TO PAIN, RESPONDS TO VOICE BUT CANNOT FOLLOW COMMANDS OR OPEN EYES. SKIN WARM AND DRY, EDEMATOUS TO UPPER EXTREMITIES. AFEBRILE. OGT IN PLACE CONNECTED TO VITAL AF TUBE FEEDING, 60ML/HR. AIR CHECK/AUSCULTATION CONFIRMED. RESIDUALS 55ML. ABDOMEN IS LARGE, NONTENDER WITH ACTIVE BOWEL SOUNDS. JASSO IN PLACE, CLEAR YELLOW URINE DRAINING BY GRAVITY. SCD's CONNECTED. BILATERAL SOFT WRIST RESTRAINTS IN PLACE, QUICK RELEASE KNOTS. SKIN INTACT, CIRCULATION WNL. HOB 30 DEGREES, SIDERAILS UP, BED LOCKED AND IN LOWEST POSITION. DROPLET PRECAUTIONS IN PLACE, POSITIVE COVID, SIGNS IN PLACE. WILL CONTINUE TO MONITOR.
--- NOTE | 2019-10-11 20:40 | NUR ---
RN AND RT AT BEDSIDE, PROVIDED VAP ORAL CARE. SMALL AMOUNT OF SECRETIONS ORALLY (WHITE/CREAMY). SUCTIONED ETT, VERY SCANT AMOUNT OF SECRETIONS. PATIENT GRIMACING AND MOVING AROUND. ABLE TO RAISE EYEBROWS AND SHAKE HEAD AND ARMS. PATIENT AGITATED, TITRATED SEDATION AND MORPHINE DRIP. TURNED AND POSITIONED. SKIN INTACT AT SACRUM AND BACK. PILLOWS ADJUSTED FOR BODY ALIGNMENT. SAFETY MEASURES IN PLACE.
[2019-10-11] MEDS: methylPREDNISolone SS 40 MG/ML VIAL IVP SCH (21:08)
--- NOTE | 2019-10-11 21:25 | NUR ---
BLOOD SUGAR 124, NO COVERAGE PER SLIDING SCALE. SCHEDULED MEDICATIONS GIVEN. TOLERATED WELL. CHANGED CAPS AT IV LINES. RIJ IN PLACE, CHANGED CENTRAL LINE DRESSING. FLACC 0.
--- NOTE | 2019-10-11 23:55 | NUR ---
AIR CHECK COMPLETE, POSITIVE AUSCULTATION SOUND HEARD. TOLERATING TUBE FEEDING WELL, RESIDUALS 50ML.
[2019-10-12] VITALS (104 sets, daily range): BP systolic 109–179; BP diastolic 51–99
--- NOTE | 2019-10-12 00:36 | NUR ---
VAP ORAL CARE GIVEN, PATIENT WITHDRAWS TO TOUCH, CANNOT FOLLOW COMMANDS. SINUS TACH ON MONITOR, RESPIRATIONS ELEVATED- VENT SETTINGS AT 28 BUT PATIENT BREATHING IN HIGH 30's. INCREASE SEDATION AND MORPHINE DRIP. REPOSITIONED AND RELEASED RESTRAINTS, SKIN INTACT. REAPPLIED RESTRAINTS. WILL CONTINUE TO MONITOR.
--- NOTE | 2019-10-12 02:16 | NUR ---
NORMAL SINUS RHYTHM TO SINUS TACH ON MONITOR, HIGHEST HEART RATE-114BPM, BLOOD PRESSURE, SBP IN 130-140's. RESPIRATIONS INCREASED, VISIBLE CHEST RISE AND FALL, BETWEEN 32-38. VENT SET AT 28. SATURATIONS 91%. WILL CONTINUE TO MONITOR.
--- NOTE | 2019-10-12 04:35 | NUR ---
LABS DRAWN, VAP CARE PROVIDED, SPONGE BATH AND JASSO CARE PROVIDED. NO BOWEL MOVEMENT, ONLY FLATUS. PATIENT HAS INTERMITTENT COUGH, ONLY SMALL AMOUNT OF SECRETIONS SUCTIONED. PATIENT OPENS EYES TO PAIN AND VOICE. CANNOT FOLLOW COMMANDS. RESPIRATIONS IN HIGH 30's AND SATURATIONS IN 91-93%, RT MADE AWARE. EXPLAINED WEANING PROCEDURE TO PATIENT AND CPAP TRIALS, CANNOT GESTURE OR NOD HEAD YES OR NO. PATIENT CONTINUES TO MOVE AROUND-HEAD AND ARMS. TRIES TO MOVE HEAD AWAY WHEN CLEANING FACE AND MOUTH. REAPPLIED RESTRAINTS, SKIN INTACT. BED LOCKED AND IN LOW POSITION, HOB [address], INFUSING VERSED AND MORPHINE. CANNOT RESPOND WHEN ASKED IF IN PAIN, USE FLACC SCALE-FLACC 0/
--- NOTE | 2019-10-12 04:59 | NUR ---
PATIENT APPEARS STABLE ON CHARTED SETTINGS. TO SPRINT ON CPAP/PS DURING DAY SHIFT. WILL CONTINUE TO MONITOR.
[2019-10-12] MEDS: MIDAZOLAM MDV 100 MG in NACL 0.9% 80 ML IV PRN (05:20)
--- NOTE | 2019-10-12 06:15 | NUR ---
STARTED A NEW TUBE FEEDING, PATIENT TOLERATING WELL. RESIDUALS ONLY 35ML. HOB 30 DEGREES. PATIENT IS COUGHING AND BLOODY SECRETIONS NOTED IN ETT. SUCTIONED ORALLY, WHITE CREAMY SECRETIONS ONLY. PATIENT WILL SHAKE HEAD BACK AND FORTH WITH LIGHT TOUCH/NURSING CARE. SUCTIONED AT ETT AND SCANT AMOUNT OF BLOOD COLLECTED. PT HAS DAILY LOVENOX SUBQ. RESIDENT MD AWARE. NO OTHER SIGNS OF BLEEDING, JASSO HAS CLEAR YELLOW URINE AND RIJ CENTRAL LINE DRESSING DRY AND INTACT. VERSED INFUSING AT 6MG/HR-6ML/HR, AND MORPHINE AT 3MG/HR-3ML/HR. RASS -3. PATIENT WILL OPEN EYES MORE NOW, WITH LIGHT PAIN, CANNOT FOLLOW COMMANDS, CANNOT TRACK WITH EYES. SCD's IN PLACE, HOB GREATER THAN 30 DEGREES, SIDERAILS UP, SAFETY ALARMS IN PLACE, FLACC 0, ST ON MONITOR.
[2019-10-12 06:26] LABS: HEMATOCRIT 30.2 % (36-48); HEMOGLOBIN 9.8 g/dL (12.0-16.0); MEAN CORPUSCULAR HEMOGLOBIN 27 pg (27-31); MEAN CORPUSCULAR HGB CONC 32 g/dL (33-37); MEAN CORPUSCULAR VOLUME 83.2 fL (80-94); PLATELET COUNT (AUTO) 445 K/uL (140-450); RED BLOOD CELL COUNT(AUTO) 3.63 MIL/uL (4.20-5.40); RED CELL DISTRIBUTION WIDTH 13.9 % (11.6-13.7); WHITE BLOOD COUNT (AUTO) 12.1 K/uL (4.8-10.8)
[2019-10-12] MEDS: BLOOD GLUCOSE MONITORING 1 DEV DEV FS SCH ×4 (06:45→20:44)
[2019-10-12 06:55] LABS: ANION GAP 11.8 (8-16); CARBON DIOXIDE 28.6 mmol/L (21-32); CREATININE 0.8 mg/dL (0.6-1.3); POTASSIUM 4.4 mmol/L (3.5-5.1)
[2019-10-12 06:57] LABS: PHOSPHORUS 3.5 mg/dL (2.5-4.9)
--- NOTE | 2019-10-12 07:30 | NUR ---
ETT IS SECURED AND INTACT.
--- NOTE | 2019-10-12 07:30 | NUR ---
RECEIVED PT ON DOCUMENTED SETTINGS. SX: CLEAR TO BLOOD TINGED SECRETIONS. VENT IS PLUGGED INTO RED OUTLET, ALARMS ARE ON AND FUNCTIONING, AMBU BAG AT BEDSIDE. PT SHOWS NO SIGN OF DISTRESS, WILL CONTINUE TO MONITOR.
--- NOTE | 2019-10-12 08:00 | NUR ---
RECEIVED PATIENT ON BED WITH ETT TO VENT SIZE 7.5 WITH VENT SETTING FOLLOWS=FIO2=55 PERCENT,PINSP=22,RATE=28,PEEP=7.PT ON VERSED DRIP AT 6 MG/H AND MORPHINE DRIP AT 3 MG/H.PT RASS-3.PT OGT WITH VITAL AT 60 ML/H FLUSH AT 100 Q 4 HOURS.RESIDUAL IS 60.JASSO TO GRAVITY.ST ON THE MONITOR.RIGHT INTERNAL JUGULAR TRIPLE LUMEN CATHETER PATENT AND INTACT.DRESSING INTACT AND WAS CHANGED BY CHILD CARE DEVELOPMENT SPECIALIST.BILATERAL SCD ON.BILATERAL SOFT WRIST RESTRAINTS ON.NO INJURY AT BILATERAL WRIST.ALL ALTERNATIVES FAILED.WILL MONITOR.
[2019-10-12] MEDS: methylPREDNISolone SS 40 MG/ML VIAL IVP SCH ×2 (08:09→20:25)
[2019-10-12] MEDS: ZINC SULF 220 MG CAP NG SCH (08:09)
[2019-10-12] MEDS: ASCORBIC ACID 500 MG TAB NG SCH (08:09)
[2019-10-12] MEDS: PANTOPRAZOLE 40 MG INJ VIAL IVP SCH ×2 (08:09→20:25)
[2019-10-12] MEDS: ENOXAPARIN 40 MG/0.4 ML SYR SUBQ SCH (08:10)
[2019-10-12] MEDS: MORPHINE SULFATE 100 MG in NACL 0.9% 90 ML IV PRN (08:15)
--- NOTE | 2019-10-12 08:30 | NUR ---
RESIDENT MAKING ROUNDS AND MENTIONED PT IS NO LONGER ON ANTIBIOTICS.
[2019-10-12 09:57] LABS: BASOPHILS % (MANUAL) 0 % (0-2); EOSINOPHILS % (MANUAL) 0 % (0-4); LYMPHOCYTES % (MANUAL) 3 % (20-46); MONOCYTES % (MANUAL) 1 % (5-12)
--- NOTE | 2019-10-12 11:18 | NUR ---
TITRATED PT SET PEEP TO +8 DUE TO SATURATION LEVELS. PATIENT IS CURRENTLY STABLE WITH NO DISTRESS. WILL CONTINUE TO MONITOR.
--- NOTE | 2019-10-12 12:58 | NUR ---
UNABLE TO WEAN PT AT THIS TIME DUE TO HIGH SETTINGS AND INTERVALS OF DESATURATION.
--- NOTE | 2019-10-12 13:45 | NUR ---
UPDATED SON ABOUT PTS CONDITION THAT PT DESATURATES SO RT DID NOT WEAN THE PT.SON MADE AWARE RESIDENT WAS AWARE.ALSO NOTIFIED SON IS ON BILATERAL SOFT WRIST RESTRAINTS BECAUSE HE IS PULLING TUBES AND LINES.
--- NOTE | 2019-10-12 15:36 | NUR ---
10/12/19 RD FOLLOW UP COMPLETED PLEASE REFER TO NUTRITION ASSESSMENT UNDER CARE ACTIVITY FOR ESTIMATED NUTRITIONAL NEEDS. 1. CONTINUE VITAL HIGH PROTEIN AT GOAL RATE OF 60 ML/HR X 24 HR -THIS WILL PROVIDE 1440 KCAL, 126 GM PROTEIN, AND 1204 ML FREE WATER, WHICH WILL MEET 93% ESTIMATED KCAL NEEDS AND 82% ESTIMATED PROTEIN NEEDS. 2. CONTINUES FREE WATER FLUSH OF 100 ML Q4H PER MD 3. CONTINUE VITAMIN C AND ZINC FOR SKIN INTEGRITY 4. RECOMMEND SWALLOW EVALUATION IF PATIENT IS EXTUBATED AND STABLE FOR PO DIET 5. RD TO FOLLOW-UP 2-3 DAYS, HIGH RISK. DUSTIN LOU RD
[2019-10-12] MEDS: INSULIN LISPRO SLIDING SCALE 100 UNITS/ML VIAL SUBQ PRN (16:37)
--- NOTE | 2019-10-12 17:35 | NUR ---
SX: SMALL YELLOW SECRETIONS. HME CHANGED. LEFT PATIENT ON DOCUMENTED SETTINGS. SHOWS NO SIGN OF DISTRESS. VENT IS PLUGGED INTO RED OUTLET, ALARMS ARE ON AND FUNCTIONING, AMBU BAG AT BEDSIDE. ETT IS SECURED AND INTACT.
--- NOTE | 2019-10-12 18:45 | NUR ---
BP OF PT IS UP .DR STINSON AWARE BUT PT IS ALSO RESTLESS AND SUCTIONED ORALLY.WILL MONITOR.
--- NOTE | 2019-10-12 18:50 | NUR ---
RECEIVED PT FROM DAY SHIFT ON DOCUMENTED SETTING. VENT PLUGGED INTO RED OUTLET. BMV AT BEDSIDE. ALARMS SET. ETT SECURED AND INTACT. PT IS ALERT AND AGITATED. RN IS AWARE. SX SMALL AMOUNT OF THICK WHITE SECRETION. WILL CONT TO MONITOR
[2019-10-12] MEDS: LISINOPRIL 10 MG TAB GT SCH (18:55)
--- NOTE | 2019-10-12 19:30 | NUR ---
REPORT GIVEN TO Stan FOR CONTINUITY OF CARE
--- NOTE | 2019-10-12 19:30 | NUR ---
RECIEVED PT FROM TANA LOPEZ. RASS -1, WILL F/U TO ACHIEVE RASS -3, PER MD ORDERS. NODS TO QUESTIONS, AND ABLE TO FOLLOW COMMANDS. DRY WEIGHT 73 KG. ETT TO VENT WITH SETTINGS FOLLOWS: AC/PC: FIO2 @ 55%, RT 22, PEEP 8. PERRL. LUNG SOUNDS COARSE @ THIS TIME. OGT IN PLACE RUNNING VITAL AF @ 60ML/HR, GOAL MET. FWF 100ML Q4H. ZERO RESIDUAL. POSITIVE PLACEMENT VERIFIED VIA AIR BOLUS. BOWEL SOUNDS ACTIVE X4. NO ABD DISTENTION/TENDERNESS NOTED. JASSO CATH IN PLACE DRAINING CLEAR, YELLOW URINE TO GRAVITY. SKIN INTACT. SAFETY PRECAUTIONS IN PLACE. BED LOW AND LOCKED. WILL CONT TO MONITOR.
--- NOTE | 2019-10-12 22:00 | NUR ---
REPOSITIONED PT WITH PRESSURE AREAS OFFLOADED. FLACC 0. VAP ORAL CARE PROVIDED. BED LOW AND LOCKED. WILL CONT TO MONITOR FOR CHANGES.
[2019-10-13] VITALS (104 sets, daily range): BP systolic 60–171; BP diastolic 29–84
--- NOTE | 2019-10-13 | NUR ---
BP WNL AT THIS TIME. ACHIEVED RASS -3, PER MD ORDERS. WILL FOLLOW-UP
[2019-10-13] MEDS: MIDAZOLAM MDV 100 MG in NACL 0.9% 80 ML IV PRN ×3 (01:25→19:34)
[2019-10-13] MEDS: MORPHINE SULFATE 100 MG in NACL 0.9% 90 ML IV PRN ×2 (01:28→14:56)
--- NOTE | 2019-10-13 02:00 | NUR ---
RASS -3 NOTED. REPOSITIONED. FLACC 0. SUCTIONED, SCANT WHITE SECRETIONS NOTED. BED LOW AND LOCKED. SAFETY PRECAUTIONS REMAIN IN PLACE. WILL CONT TO MONITOR FOR CHANGES.
[2019-10-13] MEDS: NOREPINEPHRINE 16 MG in DEXTROSE 5% 250 ML IV PRN (06:49)
[2019-10-13 06:59] LABS: ANION GAP 13.5 (8-16); CARBON DIOXIDE 27.7 mmol/L (21-32); CREATININE 1.1 mg/dL (0.6-1.3); POTASSIUM 5.2 mmol/L (3.5-5.1)
[2019-10-13 07:00] LABS: HEMATOCRIT 28.3 % (36-48)
[2019-10-13] MEDS: BLOOD GLUCOSE MONITORING 1 DEV DEV FS SCH ×4 (07:05→21:00)
[2019-10-13 07:06] LABS: BASOPHILS # (AUTO) 0.1 K/uL (0.00-0.22); BASOPHILS % (AUTO) 0.5 % (0.0-2.0); HEMOGLOBIN 9.2 g/dL (12.0-16.0); LYMPHOCYTES # (AUTO) 0.9 K/uL (2.5-16.5); LYMPHOCYTES % (AUTO) 5.7 % (20.5-51.1); MAGNESIUM 2.1 mg/dL (1.8-2.4); MEAN CORPUSCULAR HEMOGLOBIN 27 pg (27-31); MEAN CORPUSCULAR HGB CONC 32 g/dL (33-37); MEAN CORPUSCULAR VOLUME 83.1 fL (80-94); MONOCYTES # (AUTO) 1.2 K/uL (0.8-1.0); MONOCYTES % (AUTO) 7.7 % (1.7-9.3); NEUTROPHILS # (AUTO) 13.9 K/uL (1.8-7.7); NEUTROPHILS % (AUTO) 86.1 % (42.2-75.2); PHOSPHORUS 4.6 mg/dL (2.5-4.9); PLATELET COUNT (AUTO) 361 K/uL (140-450); RED CELL DISTRIBUTION WIDTH 14.3 % (11.6-13.7); WHITE BLOOD COUNT (AUTO) 16.2 K/uL (4.8-10.8)
[2019-10-13] MEDS: INSULIN LISPRO SLIDING SCALE 100 UNITS/ML VIAL SUBQ PRN ×2 (07:06→19:30)
--- NOTE | 2019-10-13 07:48 | NUR ---
RECEIVED ON A appirisAPE R860 VENTILATOR PLUGGED INTO RED OUTLET TOLERATING WELL WITHOUT ADVERSE REACTIONS NOTED TO AN ENDOTRACHEAL TUBE #7.5 SECURED AT 21cm WITH AN ANCHOR FAST CUFF PRESSURE CHECKED NOTED AMBU BAG AT BEDSIDE GOOD CHEST RISE AIRWAY PATENT
--- NOTE | 2019-10-13 08:00 | NUR ---
PATIENT WAS ACCEPTED AND ASSESS DONE, PATIENT HAS NO TEMP. MAINTAIN ON VERSED MORPHINE AND LEVOPHED DRIP , WILL WEAM LEVOPHED DRIP OFF, THE OTHER TWO DRIP WILL MAINTAIN FOR PAIN AND SEDATION, STABLE PATIENT IS ORAL INTUBATE , CHEST IS CLEAR, VERY LITTLE SECRETION , PATIENT WILL OPEN EYES, NO TRACKING WILL TRIED TO HEAR WHEN THE FAMILY CALLED ALSO SAW SOME MOVEMENT OF THE BILATER FEET ADBOME IS SOFT WITH ACTIVE BOWL SOUND, STABLE THE PATIENT IS AWKAK MORE TODAY MED STUDENT MADE ROUND IN THE AM, NO ORDER WERE WRITTEN, WILL CHECK LATER,PATIENT HAS RESTRAINT ON HER WRIST , FOR SELF PROTECTION NO BM WAS NOTICE 1200 NO CHANGES WILL CONTINUED WITH PLAN OF CAEW 1230 LEVOPHED TITRATE TO 5 MCG, BP IN THE 120/65 _130/71 AND STABLE 1730 NO CHANGES, PATIENT ABLE TO TOLERATE THE CHANGE OF POSITION , STABLE NO SKIN BREAK DOWN
[2019-10-13] MEDS: methylPREDNISolone SS 40 MG/ML VIAL IVP SCH ×2 (09:44→21:06)
[2019-10-13] MEDS: LISINOPRIL 10 MG TAB GT SCH (09:44)
[2019-10-13] MEDS: PANTOPRAZOLE 40 MG INJ VIAL IVP SCH ×2 (09:44→21:06)
[2019-10-13] MEDS: ASCORBIC ACID 500 MG TAB NG SCH (09:45)
[2019-10-13] MEDS: ZINC SULF 220 MG CAP NG SCH (09:45)
[2019-10-13] MEDS: ENOXAPARIN 40 MG/0.4 ML SYR SUBQ SCH (09:53)
--- NOTE | 2019-10-13 11:57 | NUR ---
RESTING WELL NO DISTRESS NOTED GOOD CHEST RISE
--- NOTE | 2019-10-13 13:03 | NUR ---
NO EVIDENCE OF PULMONARY DISTRESS NOTED EQUAL CHEST RISE ENDOTRACHEAL SUCTION FOR SMALL THIN YELLOW SECRETIONS AIRWAY PATENT
--- NOTE | 2019-10-13 17:44 | NUR ---
STABLE GOOD CHEST RISE AIRWAY PATENT
--- NOTE | 2019-10-13 19:30 | NUR ---
RECIEVED PT FROM TANA LOPEZ. RASS -3, PER MD ORDERS. DRY WEIGHT 73 KG. ETT TO VENT WITH SETTINGS FOLLOWS: AC/PC: FIO2 @ 55%, RT 28, PEEP 8. PERRL. LUNG SOUNDS DIMINISHED @ THIS TIME. RT IJ TRIPLE LUMEN PATENT INFUSING VERSED @ 9MG/HR, MORPHINE @ 8MG/HR, LEVOPHED @ 5 MCG/ MIN. OGT IN PLACE RUNNING VITAL HP @ 60ML/HR, GOAL MET. FWF 100ML Q4H. ZERO RESIDUAL. POSITIVE PLACEMENT VERIFIED VIA AIR BOLUS. BOWEL SOUNDS ACTIVE X4. NO ABD DISTENTION/TENDERNESS NOTED. JASSO CATH IN PLACE DRAINING CLEAR, YELLOW URINE TO GRAVITY. SKIN INTACT. SAFETY PRECAUTIONS IN PLACE. BED LOW AND LOCKED. WILL CONT TO MONITOR.
[2019-10-14] VITALS (95 sets, daily range): BP systolic 90–168; BP diastolic 43–80
--- NOTE | 2019-10-14 02:30 | NUR ---
LEVOPHED HELD AT THIS TIME DUE TO BP WNL. WILL CONT TO MONITOR.
--- NOTE | 2019-10-14 02:41 | NUR ---
SERUM POTASSIUM 5.2 FROM THIS AM. MADE DR HARRIS AWARE. NO NEW ORDERS AT THIS TIME.
--- NOTE | 2019-10-14 03:46 | NUR ---
LOWERED FIO2 TO 40%. SATS 93%. SXNED PT SMALL AMT FAIRLY CLEAR SEC. HOLLIDAY AND HME CHANGED. TUBE MOVED TO RT SIDE OF LIP
[2019-10-14] MEDS: MIDAZOLAM MDV 100 MG in NACL 0.9% 80 ML IV PRN ×2 (04:24→16:45)
[2019-10-14] MEDS: MORPHINE SULFATE 100 MG in NACL 0.9% 90 ML IV PRN ×2 (04:25→19:30)
--- NOTE | 2019-10-14 05:00 | NUR ---
REPOSITIONED. VAP ORAL CARE PROVIDED. FLACC 0. WILL CONT TO MONITOR.
--- NOTE | 2019-10-14 07:00 | NUR ---
REC'D PT ON [employer] VENT SETTINGS PC 22 RR 28 PEEP 8 FIO2 40% ALARMS ON AND AUDIBLE AND AVM AT SIDE OF VENT AND VENT IS PLUGGED INTO RED OUTLET, SXN PT MODERATE AMT OF THICK WHITE SECRETIONS, B\S ARE DIMINISHED BILATERALLY, PT IS ORALLY INTUBATED WITH ETT7.5 SECURED WITH ANCHOR FAST AT 21 CM AND PT IS RESTING
[2019-10-14 07:01] LABS: ANION GAP 9.4 (8-16); CARBON DIOXIDE 30.5 mmol/L (21-32); CREATININE 0.9 mg/dL (0.6-1.3); POTASSIUM 4.9 mmol/L (3.5-5.1)
--- NOTE | 2019-10-14 07:15 | NUR ---
REPORT GIVEN TO TOBY, GENERAL PURCHASING AGENT FOR CONTINUITY OF CARE.
[2019-10-14 07:16] LABS: PHOSPHORUS 3.9 mg/dL (2.5-4.9)
[2019-10-14] MEDS: BLOOD GLUCOSE MONITORING 1 DEV DEV FS SCH ×4 (07:47→20:53)
--- NOTE | 2019-10-14 08:00 | NUR ---
Patient SB on monitor HR 53, on vent see settings on flow sheet RT. Patient on versed - Morphine drip with good pain control, RASS -3. No co pain. Patient does eye opening when spoken to. Arturo Tyler RN
[2019-10-14] MEDS: ZINC SULF 220 MG CAP NG SCH (08:25)
[2019-10-14] MEDS: ASCORBIC ACID 500 MG TAB NG SCH (08:25)
[2019-10-14] MEDS: LISINOPRIL 10 MG TAB GT SCH (08:26)
[2019-10-14] MEDS: PANTOPRAZOLE 40 MG INJ VIAL IVP SCH ×2 (08:26→20:52)
[2019-10-14] MEDS: methylPREDNISolone SS 40 MG/ML VIAL IVP SCH ×2 (08:27→20:53)
[2019-10-14 08:36] LABS: BASOPHILS % (AUTO) 0.1 % (0.0-2.0); HEMATOCRIT 28.7 % (36-48); HEMOGLOBIN 9.2 g/dL (12.0-16.0); LYMPHOCYTES # (AUTO) 1.1 K/uL (2.5-16.5); MEAN CORPUSCULAR HEMOGLOBIN 27 pg (27-31); MEAN CORPUSCULAR HGB CONC 32 g/dL (33-37); MEAN CORPUSCULAR VOLUME 84.4 fL (80-94); MONOCYTES % (AUTO) 7.8 % (1.7-9.3); NEUTROPHILS # (AUTO) 11.2 K/uL (1.8-7.7); PLATELET COUNT (AUTO) 376 K/uL (140-450); RED CELL DISTRIBUTION WIDTH 13.8 % (11.6-13.7); WHITE BLOOD COUNT (AUTO) 13.3 K/uL (4.8-10.8)
[2019-10-14] MEDS: ENOXAPARIN 40 MG/0.4 ML SYR SUBQ SCH (08:37)
--- NOTE | 2019-10-14 10:00 | NUR ---
Patient family calls requesting update, and given, and did tell Davina that her family called.\ Arturo Tyler RN
[2019-10-14 10:30] LABS: LYMPHOCYTES % (AUTO) 8.1 % (20.5-51.1)
--- NOTE | 2019-10-14 11:18 | NUR ---
10/14/19 RD FOLLOW UP COMPLETED. PLEASE REFER TO NUTRITION ASSESSMENT UNDER CARE ACTIVITY FOR ESTIMATED NUTRITIONAL NEEDS. 1. CONTINUE VITAL HIGH PROTEIN AT GOAL RATE OF 60 ML/HR X 24 HR -THIS WILL PROVIDE 1440 KCAL, 126 GM PROTEIN, AND 1204 ML FREE WATER, WHICH WILL MEET 93% ESTIMATED KCAL NEEDS AND 82% ESTIMATED PROTEIN NEEDS. 2. CONTINUES FREE WATER FLUSH OF 100 ML Q4H PER MD 3. CONTINUE VITAMIN C AND ZINC FOR SKIN INTEGRITY 4. RECOMMEND SWALLOW EVALUATION IF PATIENT IS EXTUBATED AND STABLE FOR PO DIET RD TO FOLLOW-UP IN 2-3 DAYS PATIENT IS HIGH RISK. VERONICA RODRIGUEZ RD
--- NOTE | 2019-10-14 11:52 | NUR ---
RADIOLOGY CALLED TECH SYDNI REPORTED FINDING FROM CHEST X-RAY, RT TENA NOTIFIED OF RESULTS Addendum: 10/15/19 at 0053 by Ricardo Carlos RN WRONG TIME TIME WAS NOT 1152 TIME WAS 2359
--- NOTE | 2019-10-14 12:00 | NUR ---
Patient BS done, and coverage necessary per sliding scale per do. See EMAR for result. Arturo Tyler RN
[2019-10-14] MEDS: INSULIN LISPRO SLIDING SCALE 100 UNITS/ML VIAL SUBQ PRN (12:03)
--- NOTE | 2019-10-14 17:00 | NUR ---
BS 124, and no insulin necessary per sliding scale per do. Patient care done, repositioned to comfort. Patient with sedation and good pain control. Arturo Tyler RN
--- NOTE | 2019-10-14 19:30 | NUR ---
RECEIVED REPORT FROM DAY SHIFT RN, PT RASS -3 DRY WEIGHT, 73 KG, PT HAS MORPHINE DRIP 8MG/HR, VERSED DRIP 9 MG/HR INTO RIJ, PT IS ETT TO VENT AC/PC FIO2 40 PINSP 22 RR 20 TISP 1.1 PEEP 8. PT HAS JASSO CATHETER DRAINING CLEAR LIGHT DANIEL URINE, PULSES PALPABLE UPPER AND LOWER EXTREMITIES BILATERALLY, LUNG SOUNDS DIMINISHED WITH S1 AND S2 HEART SOUNDS HEARD, BOWEL SOUNDS ACTIVE. PT DISPLAYS NO SIGNS OF DISTRESS VITALS ARE WITHIN NORMAL LIMITS, HOB ELEVATED 30 DEGREES PER PROTOCOL, SAFETY PROTOCOL IN PLACE WILL CONTINUE TO MONITOR PT
--- NOTE | 2019-10-14 19:42 | NUR ---
RECEIVED REPORT FROM AM SHIFT. PATIENT SEEN AND ASSESSED. PATIENT IS INTUBATED WITH ETT SIZE 7.5 AND SECURED WITH ANCHOR-FAST AT 21CM. FOUND PATIENT ON VENT SETTINGS: AC/PC 22, RR 20, iT 1.1, +8, 40% WITH SPO2 OF 98%. AUSCULTATION REVEALS COARSE BILATERAL BREATH SOUNDS. VENT PLUGGED IN RED OUTLET, ALARMS SET AND AUDIBLE, HOB > 30 DEGREES, AND BVM AT BEDSIDE. SUCTION SMALL AMOUNT OF YELLOW THICK SECRETIONS FROM ETT. AIRWAY IS PATENT. PATIENT IS IN NO APPARENT RESPIRATORY DISTRESS AT THIS TIME. PRN TX NOT INDICATED AT THIS MOMENT. WILL CONTINUE TO MONITOR PATIENT.
--- NOTE | 2019-10-14 21:30 | NUR ---
PT MEDS GIVEN, NO SIGNS OF DISTRESS NOTED WILL CONTINUE TO MONITOR PT
[2019-10-15] VITALS (100 sets, daily range): BP systolic 60–166; BP diastolic 37–102
--- NOTE | 2019-10-15 00:15 | NUR ---
PT DISPLAYS NO SIGNS OF DISTRESS WILL CONTINUE TO MONITOR
--- NOTE | 2019-10-15 04:15 | NUR ---
PT OPENS EYES AND LOOKS AROUND ROOM PROMPTLY FELL BACK INTO SEDATION WILL CONTINUE CLOSE MONITORING
[2019-10-15] MEDS: NOREPINEPHRINE 16 MG in DEXTROSE 5% 250 ML IV PRN (05:22)
--- NOTE | 2019-10-15 05:55 | NUR ---
PATIENT STILL REMAINS ON VENTILATOR SUPPORT. MADE NO CHANGE IN VENT SETTINGS. AIRWAY IS PATENT. PATIENT IS IN NO RESPIRATORY DISTRESS AT THIS TIME. WILL CONTINUE TO MONITOR PATIENT.
[2019-10-15] MEDS: INSULIN LISPRO SLIDING SCALE 100 UNITS/ML VIAL SUBQ PRN ×2 (06:42→06:46)
[2019-10-15] MEDS: BLOOD GLUCOSE MONITORING 1 DEV DEV FS SCH ×5 (06:42→21:54)
--- NOTE | 2019-10-15 06:45 | NUR ---
REC' D PT ON [employer] VENT SETTINGS PC22 RR 20 ITME 1.1 PEEP 8 FIO2 40% ALARMS ON AND AUDIBLE AND BMV AT HOB AND VENT IS PLUGGED INTO RED OUTLET, SXN PT MODERATE AMT OF YELLOW SECRETIONS, B\S ARE COARSE BILATERALLY, PT IS ORALLY INTUBATED WITH 7.5 ETT SECURED WITH ANCHOR FAST AT 21 CM PT IS RESTING
[2019-10-15 07:00] LABS: HEMATOCRIT 30.1 % (36-48); HEMOGLOBIN 9.8 g/dL (12.0-16.0); LYMPHOCYTES % (AUTO) 8.9 % (20.5-51.1); MEAN CORPUSCULAR HEMOGLOBIN 27 pg (27-31); MEAN CORPUSCULAR HGB CONC 33 g/dL (33-37); MEAN CORPUSCULAR VOLUME 84.2 fL (80-94); MONOCYTES # (AUTO) 0.6 K/uL (0.8-1.0); MONOCYTES % (AUTO) 5.3 % (1.7-9.3); NEUTROPHILS # (AUTO) 9.3 K/uL (1.8-7.7); NEUTROPHILS % (AUTO) 85.8 % (42.2-75.2); PLATELET COUNT (AUTO) 409 K/uL (140-450); RED BLOOD CELL COUNT(AUTO) 3.58 MIL/uL (4.20-5.40); RED CELL DISTRIBUTION WIDTH 14.3 % (11.6-13.7); WHITE BLOOD COUNT (AUTO) 10.8 K/uL (4.8-10.8)
--- NOTE | 2019-10-15 07:25 | NUR ---
REPORT GIVEN TO DAY SHIFT RN NO SIGNS OF DISTRESS NOTED AT THIS TIME
--- NOTE | 2019-10-15 07:30 | NUR ---
RECEIVED REPORT FROM PM SHIFT NURSE, RN. PT SLEEPING NOW. RESPIRATORY EVEN AND UNLABORED, NO SOB NOTED. 30L/PM VIA HIGH FLOW NASAL CANNULA . NO FEVER. TEMP 97.2. F/ C DRAING YELLOW COLORED URINE. RT FEMRAL JODY CATHETER DRY AND INTACT ( 2L OUT 10/14/19) CALL LIGHT WITHIN REACH. WILL CONTINUE TO MONITOR.
[2019-10-15] MEDS: methylPREDNISolone SS 40 MG/ML VIAL IVP SCH ×2 (09:30→21:55)
[2019-10-15] MEDS: ENOXAPARIN 40 MG/0.4 ML SYR SUBQ SCH (09:30)
[2019-10-15] MEDS: PANTOPRAZOLE 40 MG INJ VIAL IVP SCH ×2 (09:30→21:55)
[2019-10-15] MEDS: ASCORBIC ACID 500 MG TAB NG SCH (09:30)
[2019-10-15] MEDS: LISINOPRIL 10 MG TAB GT SCH (09:30)
[2019-10-15] MEDS: ZINC SULF 220 MG CAP NG SCH (09:30)
[2019-10-15 10:40] LABS: ALBUMIN 2.2 g/dL (3.4-5.0); ANION GAP 9.4 (8-16); CARBON DIOXIDE 29.6 mmol/L (21-32); CREATININE 0.8 mg/dL (0.6-1.3); MAGNESIUM 1.9 mg/dL (1.8-2.4); PHOSPHORUS 3.7 mg/dL (2.5-4.9); TOTAL BILIRUBIN 0.5 mg/dL (0.0-1.0)
--- NOTE | 2019-10-15 11:30 | NUR ---
JOSE BS 251, GIVEN 6 UNITS LISPRO INSULIN.
[2019-10-15] MEDS: MIDAZOLAM MDV 100 MG in NACL 0.9% 80 ML IV PRN (14:57)
[2019-10-15] MEDS: MORPHINE SULFATE 100 MG in NACL 0.9% 90 ML IV PRN ×2 (15:03→21:58)
--- NOTE | 2019-10-15 17:00 | NUR ---
NO SIG N AND SYMPTOMS ANY PAIN. BLOOSD SUGAR 119, GIVEN 2 UNITS INSULIN LISPRO PER SLIDING SCALE.
--- NOTE | 2019-10-15 18:00 | NUR ---
ENCOURAGE PT PRONE POSITION AT LEAST 12HRS A DAY Addendum: 10/15/19 at 1851 by Agency 03 RN RN WRONG PATIENT
--- NOTE | 2019-10-15 18:30 | NUR ---
CONTINUE GONSALO SOFT WRIST RESTRAINTS VERSED 10MG/HR MORPHINE 8MG/HR DRIP MODERATE SEDATED. ETT TO VENT A/SENIOR ACCOUNT CLERK [id number], [id number], PEEP 6 TOLERATED. F/C DRAING DANIEL COLORED URINE 900 ML OUT. PROVIDED COMFORT AND SAFETY.
--- NOTE | 2019-10-15 19:03 | NUR ---
RECEIVED REPORT FROM AM SHIFT. PATIENT SEEN AND ASSESSED. PATIENT IS INTUBATED WITH ETT SIZE 7.5 AND SECURED WITH ANCHOR-FAST AT 21CM. FOUND PATIENT ON VENT SETTINGS: AC/PC 24, RR 18, iT 1.1, +6, 35% WITH SPO2 OF 94%. AUSCULTATION REVEALS CLEAR BREATH SOUNDS ON UPPER LOBES AND COARSE BILATERAL BREATH SOUNDS ON LOWER BASES. VENT PLUGGED IN RED OUTLET, ALARMS SET AND AUDIBLE, HOB > 30 DEGREES, AND BVM AT BEDSIDE. SUCTION SMALL AMOUNT OF YELLOW THICK SECRETIONS FROM ETT. AIRWAY IS PATENT. PATIENT IS IN NO APPARENT RESPIRATORY DISTRESS AT THIS TIME. PRN TX NOT INDICATED AT THIS MOMENT. WILL CONTINUE TO MONITOR PATIENT.
--- NOTE | 2019-10-15 19:30 | NUR ---
RECEIVED PT FROM DAY SHIFT RN, PT RASS -3 DRY WIEGHT 73 KG, ETT TO VENT ACPC FIO2 35 RR 18 PEEP 8 PT HAS RIJ PICC TRIPLE LUMEN, LUNGS SOUNDS DIMINISHED, S1 AND S2 HEART SOUNDS HEARD, PULSES PALPABLE UPPER AND LOWER EXTREMITIES, BOWEL SOUNDS ACTIVE, PT HAS JASSO CATHETER DRAINING STRAW COLORED URINE, PT DISPLAYS NO SIGNS OF DISTRESS, WILL CONTINUE TO MONITOR PT.
--- NOTE | 2019-10-15 21:45 | NUR ---
PT MEDS GIVEN VAP ORAL CARE, PROVIDED WILL CONTINUE TO MONITOR PT
[2019-10-16] VITALS (106 sets, daily range): BP systolic 72–178; BP diastolic 45–94
--- NOTE | 2019-10-16 | NUR ---
PT REMAINS STABLE, VITALS WITHIN NORMAL LIMITS WILL CONTINUE TO MONITOR
[2019-10-16] MEDS: MIDAZOLAM MDV 100 MG in NACL 0.9% 80 ML IV PRN ×3 (01:51→22:46)
--- NOTE | 2019-10-16 02:00 | NUR ---
PT DISPLAYS SOME MOVEMENT IN BED BUT QUICKLY SETTLES DOWN WILL CONTINUE TO MONITOR PT
--- NOTE | 2019-10-16 04:30 | NUR ---
PT VITALS STABLE AND DISPLAYS NO SIGNS OF DISTRESS WILL CONTINUE TO MONITOR
[2019-10-16 07:05] LABS: BASOPHILS % (AUTO) 0.1 % (0.0-2.0); HEMATOCRIT 29.5 % (36-48); HEMOGLOBIN 9.5 g/dL (12.0-16.0); LYMPHOCYTES % (AUTO) 9.4 % (20.5-51.1); MEAN CORPUSCULAR HEMOGLOBIN 27 pg (27-31); MEAN CORPUSCULAR HGB CONC 32 g/dL (33-37); MONOCYTES # (AUTO) 0.9 K/uL (0.8-1.0); MONOCYTES % (AUTO) 8.4 % (1.7-9.3); NEUTROPHILS # (AUTO) 8.9 K/uL (1.8-7.7); NEUTROPHILS % (AUTO) 82.1 % (42.2-75.2); PLATELET COUNT (AUTO) 330 K/uL (140-450); RED BLOOD CELL COUNT(AUTO) 3.52 MIL/uL (4.20-5.40); WHITE BLOOD COUNT (AUTO) 10.9 K/uL (4.8-10.8)
--- NOTE | 2019-10-16 07:20 | NUR ---
REPORT GIVEN TO DAY SHIFT RN, PT DISPLAYS NO ISNGS OF DISTRESS AT TIME OF HANDOFF
--- NOTE | 2019-10-16 07:30 | NUR ---
RECEIVED REPORT FROM PM SHIFT NURSE, TANA GONZALES. PT SEDETION NOW ON MORPHINE 8MG/HR, VERSED 10MG/HR DRIP. OGT FEEDING WITH VITAL AF 1.2 AT 60CC/HR TOLERATED. OGT TO VENT ACPC RATE 18, FIO2 40%, PEEP24. F/C DRAINING DANIEL COLORED URINE. RIJ CENTRAL LINE X3 PATENT & DRY. CALL LIGHT WITHIN REACH WILL CONTINUE TO MONITOR.
[2019-10-16 07:32] LABS: MAGNESIUM 1.8 mg/dL (1.8-2.4); PHOSPHORUS 3.8 mg/dL (2.5-4.9)
--- NOTE | 2019-10-16 07:35 | NUR ---
RECEIVED ON A [employer] R860 VENTILATOR PLUGGED INTO RED OUTLET TOLERATING WELL WITHOUT ADVERSE REACTIONS NOTED TO AN ENDOTRACHEAL TUBE #7.5 SECURED AT 21cm WITH AN ANCHOR FAST CUFF PRESSURE CHECKED NOTED AMBU BAG AT BEDSIDE GOOD CHEST RISE ENDOTRACHEAL SUCTION FOR COPIOUS FROTHY PALE YELLOW SECRETIONS AIRWAY PATENT
[2019-10-16 07:44] LABS: ANION GAP 11.8 (8-16); CARBON DIOXIDE 30.1 mmol/L (21-32); CREATININE 0.6 mg/dL (0.6-1.3); POTASSIUM 4.9 mmol/L (3.5-5.1)
[2019-10-16] MEDS: BLOOD GLUCOSE MONITORING 1 DEV DEV FS SCH ×2 (09:00→20:47)
[2019-10-16] MEDS: LISINOPRIL 10 MG TAB GT SCH (09:00)
[2019-10-16] MEDS: methylPREDNISolone SS 40 MG/ML VIAL IVP SCH ×2 (09:00→20:48)
[2019-10-16] MEDS: PANTOPRAZOLE 40 MG INJ VIAL IVP SCH ×2 (09:00→20:47)
[2019-10-16] MEDS: ASCORBIC ACID 500 MG TAB NG SCH (09:00)
[2019-10-16] MEDS: ZINC SULF 220 MG CAP NG SCH (09:00)
[2019-10-16] MEDS: ENOXAPARIN 40 MG/0.4 ML SYR SUBQ SCH (09:00)
--- NOTE | 2019-10-16 09:58 | NUR ---
NO APPARENT PULMONARY DISTRESS NOTED GOOD CHEST RISE
--- NOTE | 2019-10-16 11:30 | NUR ---
ACCUCHECK BS 112, NO COVERAGE INSULIN
--- NOTE | 2019-10-16 12:28 | NUR ---
NO APPARENT PULMONARY DISTRESS NOTED GOOD CHEST RISE AIRWAY PATENT
--- NOTE | 2019-10-16 13:47 | NUR ---
RESTING WELL NO DISTRESS NOTED EQUAL CHEST RISE
[2019-10-16] MEDS: MORPHINE SULFATE 100 MG in NACL 0.9% 90 ML IV PRN (14:32)
--- NOTE | 2019-10-16 15:28 | NUR ---
SEDATED NO DISTRESS NOTED GOOD CHEST RISE
--- NOTE | 2019-10-16 17:29 | NUR ---
SEDATED RESTING WELL WITHOUT INCIDENT GOOD CHEST RISE
--- NOTE | 2019-10-16 19:06 | NUR ---
RECEIVED REPORT FROM AM SHIFT. PATIENT SEEN AND ASSESSED. PATIENT IS INTUBATED WITH ETT SIZE 7.5 AND SECURED WITH ANCHOR-FAST AT 21CM. FOUND PATIENT ON VENT SETTINGS: AC/PC 24, RR 18, iT 0.95, +6, 40% WITH SPO2 OF 94%. AUSCULTATION REVEALS CLEAR BREATH SOUNDS ON UPPER LOBES AND COARSE BILATERAL BREATH SOUNDS ON LOWER BASES. VENT PLUGGED IN RED OUTLET, ALARMS SET AND AUDIBLE, HOB > 30 DEGREES, AND BVM AT BEDSIDE. SUCTION SMALL AMOUNT OF YELLOW THICK SECRETIONS FROM ETT. AIRWAY IS PATENT. PATIENT IS IN NO APPARENT RESPIRATORY DISTRESS AT THIS TIME. PRN TX NOT INDICATED AT THIS MOMENT. WILL CONTINUE TO MONITOR PATIENT.
--- NOTE | 2019-10-16 19:20 | NUR ---
FOUND PATIENT AWAKE AND ALERT. PLACED PATIENT ON SBT. SETTINGS CPAP 5 PS 10. PATIENT IS TOLERATING. RSBI 70-76. DR. STINSON WAS NOTIFIED. WILL CONTINUE TO MONITOR PATIENT.
--- NOTE | 2019-10-16 19:30 | NUR ---
RECEIVED REPORT FROM DAY SHIFT RN PT ETT TO VENT AC/PC FIO2 40 RR 18 PISP 24 PEEP 6 PT HAS RIJ TRIPLE LUMEN INFUSING VERSED 10 MG/HR, MORPHINE 8MG/HR PT DRY WEIGHT IS 73KG. PT HAS JASSO CATHETER DRAINING LIGHT DANIEL COLORED URINE, LUNG SOUNDS DIMINISHED S1 AND S2 HEART SOUNDS HEARD, BOWL SOUNDS ACTIVE, PT ON TUBE FEEDING VITAL 60ML/HR WATER FLUSH 100 Q4H PT RESIDUALS 60 ML, PULSES PALPABLE UPPER AND LOWER EXTREMITIES BILATERAL, WILL CONTINUE TO MONITOR PT.
--- NOTE | 2019-10-16 20:15 | NUR ---
PATIENT TOLERATED SBT FOR ALMOST AN HOUR. PATIENT WAS PLACED BACK TO TIMO VENT SETTINGS TO REST. RN NOTIFIED. WILL CONTINUE TO MONITOR PATIENT.
--- NOTE | 2019-10-16 20:55 | NUR ---
PT MEDS GIVEN PT TOLERATING TREATMENT WILL CONTINUE TO MONITOR PT
[2019-10-16] MEDS ORDERED: CRUSHER, PILL MC ONE (21:19)
[2019-10-17] VITALS (101 sets, daily range): BP systolic 96–166; BP diastolic 51–105
--- NOTE | 2019-10-17 01:27 | NUR ---
PT BED BATH GIVEN PT REMAINS RASS -3 AND IS IN BED NO SIGNS OF DISTRESS OBSERVED
[2019-10-17] MEDS: MORPHINE SULFATE 100 MG in NACL 0.9% 90 ML IV PRN ×2 (01:43→18:27)
[2019-10-17 06:49] LABS: BASOPHILS % (AUTO) 0.1 % (0.0-2.0); HEMATOCRIT 32.4 % (36-48); HEMOGLOBIN 10.6 g/dL (12.0-16.0); LYMPHOCYTES # (AUTO) 1.2 K/uL (2.5-16.5); LYMPHOCYTES % (AUTO) 7.3 % (20.5-51.1); MEAN CORPUSCULAR HEMOGLOBIN 27 pg (27-31); MEAN CORPUSCULAR HGB CONC 33 g/dL (33-37); MEAN CORPUSCULAR VOLUME 83.6 fL (80-94); MONOCYTES # (AUTO) 0.9 K/uL (0.8-1.0); MONOCYTES % (AUTO) 5.5 % (1.7-9.3); NEUTROPHILS # (AUTO) 14.2 K/uL (1.8-7.7); NEUTROPHILS % (AUTO) 87.1 % (42.2-75.2); PLATELET COUNT (AUTO) 354 K/uL (140-450); RED BLOOD CELL COUNT(AUTO) 3.87 MIL/uL (4.20-5.40); WHITE BLOOD COUNT (AUTO) 16.3 K/uL (4.8-10.8)
[2019-10-17 07:08] LABS: ANION GAP 9.9 (8-16); CARBON DIOXIDE 30.6 mmol/L (21-32); CREATININE 0.6 mg/dL (0.6-1.3); POTASSIUM 4.5 mmol/L (3.5-5.1)
[2019-10-17 07:13] LABS: MAGNESIUM 1.7 mg/dL (1.8-2.4); PHOSPHORUS 4.2 mg/dL (2.5-4.9)
[2019-10-17] MEDS: BLOOD GLUCOSE MONITORING 1 DEV DEV FS SCH ×4 (07:29→21:28)
[2019-10-17] MEDS: DOCUSATE 100 MG/10 ML UDC GT PRN (07:30)
--- NOTE | 2019-10-17 07:30 | NUR ---
RECEIVED REPORT FROM PM SHIFT NURSE TANA GONZALES. PT SEDATED ON VERSED 11MG/HR, MORPHINE 8MG/HR DRIP, OGT TO VENT ( AC/PC 40% 18 6 ) TOLERATED. FEEDING ( VITAL AF 1.2 @ 60ML/HR) HOLD. RESIDUAL 60ML NOW. F/C DRAING DANIEL COLORED URINE. CALL LIGHT WITHIN REACH. TELE MONITOR SHOW SR. WILL CONTINUE TO MONITOR.
[2019-10-17] MEDS: MIDAZOLAM MDV 100 MG in NACL 0.9% 80 ML IV PRN ×2 (08:47→21:07)
[2019-10-17] MEDS: PANTOPRAZOLE 40 MG INJ VIAL IVP SCH ×2 (08:58→20:25)
[2019-10-17] MEDS: methylPREDNISolone SS 40 MG/ML VIAL IVP SCH ×2 (08:58→20:25)
[2019-10-17] MEDS: LISINOPRIL 10 MG TAB GT SCH (08:58)
[2019-10-17] MEDS: ASCORBIC ACID 500 MG TAB NG SCH (08:59)
[2019-10-17] MEDS: ZINC SULF 220 MG CAP NG SCH (08:59)
[2019-10-17] MEDS: ENOXAPARIN 40 MG/0.4 ML SYR SUBQ SCH (09:06)
--- NOTE | 2019-10-17 13:46 | NUR ---
10/17/19 RD FOLLOW UP COMPLETED PLEASE REFER TO NUTRITION ASSESSMENT UNDER CARE ACTIVITY FOR ESTIMATED NUTRITIONAL NEEDS. 1. CONTINUE VITAL HIGH PROTEIN AT GOAL RATE OF 60 ML/HR X 24 HR -THIS WILL PROVIDE 1440 KCAL, 126 GM PROTEIN, AND 1204 ML FREE WATER, WHICH WILL MEET 100% ESTIMATED KCAL NEEDS AND >100% ESTIMATED PROTEIN NEEDS. 2. CONTINUES FREE WATER FLUSH OF 100 ML Q4H PER MD 3. CONTINUE VITAMIN C AND ZINC FOR SKIN INTEGRITY 4. RECOMMEND SWALLOW EVALUATION IF PATIENT IS EXTUBATED AND STABLE FOR PO DIET 5. RD TO FOLLOW-UP 2-3 DAYS, HIGH RISK. DUSTIN LOU RD
[2019-10-17] MEDS ORDERED: MAGNESIUM OXIDE 400 MG TAB NG SCH (14:00)
--- NOTE | 2019-10-17 15:14 | NUR ---
RECD PT ON VENT WITH ET TUBE SECURE AND INTACT, VENT ALARMS AUDIBLE, AMBU BAG AT BEDSIDE, ALARMS SET AND VENT PLUGGED INTO RED OUTLET.
--- NOTE | 2019-10-17 19:15 | NUR ---
RECEIVED BEDSIDE REPORT FROM AM SHIFT NURSE. PATIENT IS LYING IN BED, SEDATED WITH RASS-3. DRY WEIGHT OF 73KG. NO DISTRESS NOTED ON ETT TO MECHANICAL VENTILATOR. TOLERATING VENT SETTINGS WELL ON ACPC MODE, FIO2-35, RR-18, AND PEEP 6. OGT NOTED, PATENT AND INTACT WITH CONTINUOUS FEEDING OF VITAL AF 1.2. JASSO CATHETER IN PLACE, DRAINING LIGHT DANIEL COLORED URINE. IV ACCESS NOTED ON RIGHT IJ, TRIPLE LUMEN RUNNING MORPHINE DRIP AT 8ML/H= 8MG/HR AND VERSED 10ML/H= 10MG/H. SKIN IS INTACT. PATIENT NOTED WITH BILATERAL SOFT WRIST RESTRAINTS. NO INJURY OR SKIN BREAKDOWN NOTED. BED IN LOW, BED LOCKED. ON DROPLET PRECAUTION. SAFETY MEASURES IN PLACE. WILL CONTINUE TO MONITOR PATIENT CLOSELY.
--- NOTE | 2019-10-17 19:40 | NUR ---
RECEIVED REPORT FROM AM SHIFT. PATIENT SEEN AND ASSESSED. PATIENT IS INTUBATED WITH ETT SIZE 7.5 AND SECURED WITH ANCHOR-FAST AT 21CM. FOUND PATIENT ON VENT SETTINGS: AC/PC 24, RR 18, iT 0.95, +6, 40% WITH SPO2 OF 92%. AUSCULTATION REVEALS COARSE BILATERAL BREATH SOUNDS. VENT PLUGGED IN RED OUTLET, ALARMS SET AND AUDIBLE, HOB > 30 DEGREES, AND AMBU BAG AT BEDSIDE. SUCTION SMALL AMOUNT OF YELLOW THICK SECRETIONS FROM ETT. AIRWAY IS PATENT. PATIENT IS IN NO APPARENT RESPIRATORY DISTRESS AT THIS TIME. PRN TX NOT INDICATED AT THIS MOMENT. WILL CONTINUE TO MONITOR PATIENT.
--- NOTE | 2019-10-17 21:00 | NUR ---
SCHEDULED MEDS ADMINISTERED. VAP ORAL CARE DONE. INITIAL ASSESSMENT DONE. PATIENT RESTING WITH EYES CLOSED. NO DISTRESS NOTED.
[2019-10-17] MEDS: INSULIN LISPRO SLIDING SCALE 100 UNITS/ML VIAL SUBQ PRN (21:30)
--- NOTE | 2019-10-17 21:30 | NUR ---
PATIENT NOTED WITH A BLOOD GLUCOSE RESULT OF 194 WITH 2 UNITS OF REGULAR HUMALOG INSULIN ADMINISTERED. PATIENT RESTING WITH EYES CLOSED. NO DISTRESS NOTED.
--- NOTE | 2019-10-17 23:47 | NUR ---
VAP ORAL CARE DONE. PATIENT SUCTIONED. TOLERATING VENT SETTINGS WELL. NO DISTRESS NOTED.
[2019-10-18] VITALS (104 sets, daily range): BP systolic 59–146; BP diastolic 15–124
--- NOTE | 2019-10-18 02:27 | NUR ---
PATIENT RESTING, SEDATED AT RASS -3. TOLERATING VENT SETTINGS WELL. NO DISTRESS NOTED.
--- NOTE | 2019-10-18 04:15 | NUR ---
MORNING CARE DONE. PATIENT SUCTIONED. BED LINENS CHANGED. PATIENT MADE CLEAN, DRY AND COMFORTABLE. NO DISTRESS NOTED.
[2019-10-18] MEDS: MIDAZOLAM MDV 100 MG in NACL 0.9% 80 ML IV PRN (04:55)
[2019-10-18] MEDS: MORPHINE SULFATE 100 MG in NACL 0.9% 90 ML IV PRN (05:50)
[2019-10-18 06:20] LABS: HEMATOCRIT 36.4 % (36-48); HEMOGLOBIN 11.6 g/dL (12.0-16.0); MEAN CORPUSCULAR HEMOGLOBIN 27 pg (27-31); MEAN CORPUSCULAR HGB CONC 32 g/dL (33-37); MEAN CORPUSCULAR VOLUME 83.7 fL (80-94); PLATELET COUNT (AUTO) 423 K/uL (140-450); RED BLOOD CELL COUNT(AUTO) 4.35 MIL/uL (4.20-5.40); RED CELL DISTRIBUTION WIDTH 14.1 % (11.6-13.7)
[2019-10-18] MEDS: BLOOD GLUCOSE MONITORING 1 DEV DEV FS SCH ×3 (06:38→21:00)
[2019-10-18] MEDS: INSULIN LISPRO SLIDING SCALE 100 UNITS/ML VIAL SUBQ PRN (06:39)
[2019-10-18 06:55] LABS: WHITE BLOOD COUNT (AUTO) 34.3 K/uL (4.8-10.8)
[2019-10-18 06:57] LABS: LYMPHOCYTES % (MANUAL) 3 % (20-46); MONOCYTES % (MANUAL) 6 % (5-12)
[2019-10-18 07:00] LABS: ANION GAP 12.8 (8-16); CARBON DIOXIDE 28.9 mmol/L (21-32); POTASSIUM 4.7 mmol/L (3.5-5.1)
[2019-10-18 07:02] LABS: PHOSPHORUS 3.9 mg/dL (2.5-4.9)
--- NOTE | 2019-10-18 07:27 | NUR ---
ENDORSED TO AM SHIFT NURSE ELISA FOR CONTINUITY OF CARE. PATIENT IS ON ETT TO MECHANICAL VENTILATOR. PATIENT RESTING AND SEDATED AT RASS -3.
--- NOTE | 2019-10-18 07:30 | NUR ---
RECEIVED REPORT FROM NIGHT NURSE LIONEL. PT IN BED SEDATED AT RASS -3, O2 SAT 87%, RT CALLED AND DR BLACKWOOD AND DR GODOY AWARE. PT BP 90/60. UPPER LIP SKIN TEAR PRESENT, OTHERWISE SKIN INTACT. PT ON MORPHINE AND VERSED FOR SEDATION. SERVICE AND REPAIR SUPERVISOR URINE OUTPUT REPORTED AT 400ML. COVID19 POSITIVE. SAFETY MEASURES IN PLACE, CALL LIGHT WITHIN REACH. WILL CONTINUE TO MONITOR.
[2019-10-18] MEDS: ENOXAPARIN 40 MG/0.4 ML SYR SUBQ SCH (08:46)
[2019-10-18] MEDS: PANTOPRAZOLE 40 MG INJ VIAL IVP SCH ×2 (08:46→21:00)
[2019-10-18] MEDS: ASCORBIC ACID 500 MG TAB NG SCH (08:47)
[2019-10-18] MEDS: ZINC SULF 220 MG CAP NG SCH (08:47)
[2019-10-18] MEDS ORDERED: LACTOBACILLUS RHAMNOSUS GG 1 EACH CAP NG SCH (09:00)
[2019-10-18] MEDS: LISINOPRIL 10 MG TAB GT SCH (09:00)
--- NOTE | 2019-10-18 09:11 | NUR ---
MEDICATIONS ADMINISTERED PER ORDER. LISINOPRIL HELD DUE TO LOW BP. PT TOLERATED WELL, NO DISTRESS NOTED. PT REPOSITIONED AT THIS TIME. RESPIRATIONS EVEN AND UNLABORED. WILL CONTINUE TO MONITOR.
[2019-10-18] MEDS: NOREPINEPHRINE 16 MG in DEXTROSE 5% 250 ML IV PRN (09:21)
--- NOTE | 2019-10-18 09:22 | NUR ---
PT STARTED ON LEVOPHED FOR LOW BP. WILL CONTINUE TO MONITOR.
--- NOTE | 2019-10-18 11:12 | NUR ---
PT REPOSITIONED AT THIS TIME. BLOOD GLUCOSE CHECKED 123, NO COVERAGE NEEDED AT THIS TIME. PT TOLERATED FEEDING WELL. NO RESPIRATORY DISTRESS NOTED. WILL CONTINUE TO MONITOR.
[2019-10-18] MEDS ORDERED: PIPERACILLIN/TAZOBACTAM 3.375 GM in DEXTROSE 5% 50 ML IV SCH (12:00)
[2019-10-18] MEDS ORDERED: VANCOMYCIN PER PHARMACY MC PRN (12:40)
[2019-10-18] MEDS: VANCOMYCIN 750 MG in DEXTROSE 5% 250 ML IV SCH (13:00)
--- NOTE | 2019-10-18 13:29 | NUR ---
MEDICATIONS ADMINISTERED PER ORDER. RASS -3, RESPIRATIONS EVEN AND UNLABORED. WILL CONTINUE TO MONITOR.
[2019-10-18] MEDS ORDERED: NOREPINEPHRINE 8 MG in DEXTROSE 5% 250 ML IV PRN (13:40)
--- NOTE | 2019-10-18 15:49 | NUR ---
PT NOT TOLERATING FEEDING, RESIDUALS 120ML, FEEDING STOPPED. DR NOTIFIED, ORDER PLACED FOR NPO. OGT ON INTERMITTENT LOW SUCTION. TEMP TAKEN 97.9. WILL CONTINUE TO MONITOR.
[2019-10-18] MEDS ORDERED: MINERAL OIL 135 ML ENEM RC PRN (16:50)
[2019-10-18] MEDS ORDERED: BISACODYL 10 MG SUPP RC SCH (17:00)
[2019-10-18] MEDS: MEROPENEM 500 MG in NACL 0.9% 50 ML IV SCH (18:00)
[2019-10-18] MEDS: METOCLOPRAMIDE 10 MG/2 ML INJ VIAL IVP SCH (18:00)
--- NOTE | 2019-10-18 18:02 | NUR ---
MEDICATIONS ADMINISTERED PER ORDER, PT TOLERATED WELL, NO DISTRESS NOTED. PT REPOSITIONED. RESPIRATIONS EVEN AND UNLABORED ON EET TO VENT. WILL CONTINUE TO MONITOR.
[2019-10-18] MEDS ORDERED: VASOPRESSIN 20 UNITS in NACL 0.9% 250 ML IV PRN (18:30)
[2019-10-18] MEDS ORDERED: HYDROCORTISONE NA SUCC 100 MG/2 ML VIAL IV SCH (18:35)
[2019-10-18] MEDS ORDERED: PHENYLEPHRINE 10 MG in NACL 0.9% 250 ML IV PRN ×4 (18:40)
[2019-10-18] MEDS ORDERED: LACTATED RINGERS 500 ML IV SCH (18:45)
--- NOTE | 2019-10-18 19:30 | NUR ---
REPORT GIVEN TO NIGHT NURSE FOR CONTINUITY OF CARE.
--- NOTE | 2019-10-18 19:30 | NUR ---
RECEIVED REPORT FROM DAY SHIFT RN. PT SEDATED RASS -3. ON MORPHINE,PHENYLEPHRINE, VASOPRESSORS, VERSED. ACCESS TO THE RIGHT IJ. ETT TO VENT- FIO2 70 ,RATE 18, PEEP 8, PINSP 24, TINSP 0.95. VITAL SIGNS STABLE. NO SIGNS OF DISTRESS. NG TUBE IN PLACE WITH VISIBLE BLOOD IN THE TUBE. UPPER LIP SKIN TEAR. SAFETY MEASURES IN PLACE. CALL LIGHT WITHIN REACH. WILL CONTINUE TO MONITOR. Addendum: 10/18/19 at 5618 by Hever Michelle RN OG TUBE NOT NG TUBE
[2019-10-18] MEDS ORDERED: PHENYLEPHRINE 10 MG/ML VIAL ONE (19:54)
[2019-10-18] MEDS ORDERED: VASOPRESSIN 20 UNITS/ML VIAL ONE ×2 (19:54→23:49)
[2019-10-18] MEDS: PHENYLEPHRINE 40 MG in NACL 0.9% 250 ML IV PRN (20:00)
[2019-10-18] MEDS: VASOPRESSIN 20 UNITS in NACL 0.9% 250 ML IV PRN (20:00)
--- NOTE | 2019-10-18 20:04 | NUR ---
RECEVED PT ON PC 24 R18,+8 50%. PT SATURATION WAS 86-87/ INC FIO2 TO 70%. VENT PLUGGED INTO RED OUTLET. BMV AT BEDSIDE. ETT SECURED AND INTACT. ALARMS AUDIBLE. PT IS IN NO DISTRESS. WILL CONT TO MONITOR
[2019-10-19] VITALS (32 sets, daily range): BP systolic 68–153; BP diastolic 24–73
--- NOTE | 2019-10-19 | NUR ---
PT SEDATED. NO SIGNS OF DISTRESS OBSERVED. WILL CONTINUE TO MONITOR.
[2019-10-19] MEDS: METOCLOPRAMIDE 10 MG/2 ML INJ VIAL IVP SCH ×2 (00:44→05:23)
[2019-10-19] MEDS: MEROPENEM 500 MG in NACL 0.9% 50 ML IV SCH ×2 (00:44→05:11)
[2019-10-19] MEDS: VANCOMYCIN 750 MG in DEXTROSE 5% 250 ML IV SCH (01:33)
--- NOTE | 2019-10-19 02:39 | NUR ---
PT RESTING. RASS-3. VITAL SIGNS STABLE. NO RESPIRATORY DISTRESS OBSERVED.
[2019-10-19] MEDS ORDERED: NOREPINEPHRINE 4 MG/4 ML VIAL IV ONE (02:46)
[2019-10-19] MEDS ORDERED: PHENYLEPHRINE 10 MG/ML VIAL ONE ×2 (02:58→03:01)
[2019-10-19] MEDS ORDERED: VASOPRESSIN 20 UNITS/ML VIAL ONE (03:06)
[2019-10-19] MEDS: VASOPRESSIN 20 UNITS in NACL 0.9% 250 ML IV PRN ×4 (03:32→07:32)
[2019-10-19] MEDS: PHENYLEPHRINE 40 MG in NACL 0.9% 250 ML IV PRN (03:34)
[2019-10-19] MEDS: MORPHINE SULFATE 100 MG in NACL 0.9% 90 ML IV PRN (03:59)
--- NOTE | 2019-10-19 04:07 | NUR ---
CENTRAL LINE DRESSING CHANGED.PT SUCTIONED. PT RESTING. NO SIGNS OF DISTRESS OBSERVED. WILL CONTINUE TO MONITOR PATIENT.
[2019-10-19] MEDS ORDERED: HYDROCORTISONE NA SUCC 100 MG/2 ML VIAL IV SCH (05:00)
--- NOTE | 2019-10-19 05:49 | NUR ---
PT REMAINS ON DOCUMENTED SETTINGS. VENT IS PLUGGED INTO RED OUTLET. BMV AT BEDSIDE. ETT SECURED AND INTACT. PT IS IN NO DISTRESS. WILL CONT TO MONITOR
--- NOTE | 2019-10-19 06:00 | NUR ---
1250 CC BLOODY DRAINAGE FROM OG TUBE. MADE AWARE. STILL NPO. NO SIGNS OF RESPIRATORY DISTRESS. WILL CONTINUE TO MONITOR.
[2019-10-19 06:12] LABS: BASOPHILS % (AUTO) 0.2 % (0.0-2.0); EOSINOPHILS % (AUTO) 0.1 % (0.0-4.0); HEMOGLOBIN 12.9 g/dL (12.0-16.0); LYMPHOCYTES # (AUTO) 1.3 K/uL (2.5-16.5); LYMPHOCYTES % (AUTO) 7.6 % (20.5-51.1); MEAN CORPUSCULAR HEMOGLOBIN 27 pg (27-31); MEAN CORPUSCULAR HGB CONC 31 g/dL (33-37); MEAN CORPUSCULAR VOLUME 86.5 fL (80-94); MONOCYTES # (AUTO) 0.8 K/uL (0.8-1.0); MONOCYTES % (AUTO) 4.3 % (1.7-9.3); NEUTROPHILS # (AUTO) 15.4 K/uL (1.8-7.7); NEUTROPHILS % (AUTO) 87.8 % (42.2-75.2); PLATELET COUNT (AUTO) 297 K/uL (140-450); RED BLOOD CELL COUNT(AUTO) 4.74 MIL/uL (4.20-5.40); RED CELL DISTRIBUTION WIDTH 14.7 % (11.6-13.7); WHITE BLOOD COUNT (AUTO) 17.5 K/uL (4.8-10.8)
[2019-10-19 06:24] LABS: ANION GAP 20.6 (8-16); CARBON DIOXIDE 19.6 mmol/L (21-32); CREATININE 2.8 mg/dL (0.6-1.3)
--- NOTE | 2019-10-19 07:30 | NUR ---
RECEIVED REPORT FROM TABLE SETTER RN. PT HAS RIGHT IJ TRIPLE LUMEN, ON THREE PRESSORS, LEVO AT 28MCG/MIN, LYNDA 100 MCG/MIN, VASOPRESSIN AT 0.01UNIT/MIN. VENT SETTING FIO2 100%, PEEP 8, RATE 18. SEDATED RASS -3, WITH VERSED 10MG/HR AND MORPHINE 10MG/HR. JASSO CATH IN PLACE, DRAINING CLOUDY AND SLIGHT DANIEL URINE. HOB 30 DEG, BED LOCKED IN LOWEST POSITION WILL CONTINUE TO MONITOR.
--- NOTE | 2019-10-19 07:30 | NUR ---
REPORT GIVEN TO DAY SHIFT NURSE FOR CONTINUITY OF CARE.
--- NOTE | 2019-10-19 08:02 | NUR ---
GOING TO DO SHIFT ASSESSMENT, WENT IN WITH RT TOBY. PT'S HEART RATE DROPS, ASYSTOLE, CHECKED FEMORAL PULSE, CAN'T FEEL PULSE, ACTIVATED CODE BLUE. ER DR RUBALCAVA CAME AND ER NURSE CAME.
[2019-10-19 08:09] LABS: POTASSIUM 6.2 mmol/L (3.5-5.1)
--- NOTE | 2019-10-19 08:48 | NUR ---
CHEST COMPRESSION STARTED AT 0803. AFTER ACLS DRUGS AND DEFIBRILLATIONS, PULSE WAS BACK BRIEFLY AT 0838, PT CODED AGAIN AT 0842. PRONOUNCE [address] RUBALCAVA.
--- NOTE | 2019-10-19 11:02 | NUR ---
NOTIFIED ADMITTING ABOUT OF PT. CALLED PT'S SON ZULMA WHO SAID DR HIDALGO ALREADY TOLD HIM ABOUT THE SITUATION. PROVIDED ZULMA ABOUT MORTUARY INFORMATION. NOTIFIED VIOLETTA GAR.
--- NOTE | 2019-10-19 14:30 | NUR ---
CLEANED PT, REMOVED CENTRAL LINE, OGT. ETT REMOVED BY RT LUIS. PLACE BODY IN THE BODY BAG. TOE TAG, BAG TAG ATTACHED. BELONGINGS RETURNED TO PT'S SON BY JONNY SNOW
--- NOTE | 2019-10-19 16:30 | NUR ---
CALLED [facility] [phone], CHOSEN BY PT'S SON, TO [facility] THE BODY.
--- NOTE | 2019-10-19 20:00 | NUR ---
GENERAL NEUROLOGIST MAX @ BEDSIDE, BODY VERIFIED AND RELEASED TO [facility].
== END 2019-10-19 20:05 | disposition expired | DRG 720 ==
LOC: EEVIPCON 01:29 → MED 01:29 → MIC 03:50
PROVIDERS: ADMIT General Practice; ATTEND General Practice
PROC: 5A1955Z Respiratory Ventilation, Greater than 96 Consecutive Hours (ICD-10-PCS; principal; 2019-10-04)
PROC: 0BH17EZ Insertion of Endotracheal Airway into Trachea, Via Natural or Artificial Opening (ICD-10-PCS; 2019-10-04)
PROC: 02HV33Z Insertion of Infusion Device into Superior Vena Cava, Percutaneous Approach (ICD-10-PCS; 2019-10-04)
PROC: B548ZZA Ultrasonography of Superior Vena Cava, Guidance (ICD-10-PCS; 2019-10-04)
PROC: 5A12012 Performance of Cardiac Output, Single, Manual (ICD-10-PCS; 2019-10-19)
DX: A41.9 Sepsis, unspecified organism (principal); U07.1 COVID-19; I21.A1 Myocardial infarction type 2; J12.89 Other viral pneumonia; J96.01 Acute respiratory failure with hypoxia; R65.21 Severe sepsis with septic shock; E44.0 Moderate protein-calorie malnutrition; G93.41 Metabolic encephalopathy; I46.9 Cardiac arrest, cause unspecified; J44.0 Chronic obstructive pulmonary disease with (acute) lower respiratory infection; Z68.29 Body mass index [BMI] 29.0-29.9, adult; E11.65 Type 2 diabetes mellitus with hyperglycemia; E66.9 Obesity, unspecified; E87.6 Hypokalemia; I10 Essential (primary) hypertension; E87.5 Hyperkalemia; E87.1 Hypo-osmolality and hyponatremia; E83.42 Hypomagnesemia; D64.9 Anemia, unspecified; R74.0 Nonspecific elevation of levels of transaminase and lactic acid dehydrogenase [LDH]; F13.90 Sedative, hypnotic, or anxiolytic use, unspecified, uncomplicated; Z79.899 Other long term (current) drug therapy
CPT/HCPCS: 31500; 36415; 36600; 51702; 71045; 74018; 80048; 80053; 80305; 81001; 82550; 82728; 82803; 82948; 83036; 83605; 83615; 83690; 83735; 83880; 84100; 84443; 84484; 85025; 85379; 85384; 85610; 85651; 85730; 86140; 87040; 87070; 87081; 87086; 87186; 87205; 87420; 87804; 89220; 92950; 93005; 94002; 94003; 96365; 96375; 99291; C9113; J0456; J0696; J1642; J1644; J1650; J1720; J1815; J1940; J2060; J2185; J2250; J2270; J2370; J2405; J2543; J2704; J2765; J2920; J2930; J3010; J3370; J3480; J3490; J7030; J7042; J7060; J7120; J8597; Q0092